=== PATIENT | female | born 1965 | race Caucasian/White ===

== ENCOUNTER 2018-07-21 02:12 | Inpatient (IN) | payer SELFPAY ==
[2018-07-21] VITALS (14 sets, daily range): BP systolic 100–133; BP diastolic 50–80
[~2018-07-21] VITALS: Ht 165.1 cm; Wt 75.7 kg
[~2018-07-21 02:12] MED LIST: ACET-575 PO; ACET325T38 PO; ALPR.25T; ALPR.5T; BSP10T PO; CEFU250T PO; CITA20TA9 PO; CITA40TA19; CLIN300C11 PO; ESCT10T; ESZO1TAB12 PO; FURO20TA4 PO; HYD; HYDR-3720 PO; HYDR-690; LACT10SO PO; LACT20SO2 PO; LEVO88TA54 PO; LORA10TA2; NAPR-915 PO; NAPR250T34 PO; NITR-65 PO; NITR100C3 PO; PANT40TA3 PO; PROP60CA8 PO; QTP100T PO; SPIR100T4 PO; Spironolactone; TRAM-21 PO; TRM50T PO; VITAMIN K; [UNRECOGNIZED DRUG - CODE]; [UNRECOGNIZED DRUG - CODE] PO; [UNRECOGNIZED DRUG - MIXTURE]; [UNRECOGNIZED DRUG - OTHER]
--- OUTSIDE RECORDS SUMMARY | 2018-07-21 02:42 | XMS REPORT | Clinical Summary ---
Author Author [facility] Organization [facility] Address Unknown Phone Unavailable Care Team Providers Care Hand Spring Repairer Helper Name Role Phone Constantino Warren MD PP Unavailable EdConstantino hollis MD Unavailable Unavailable Allergies Active Allergy Reactions Severity Noted Date Comments Sulfa Antibiotics Nausea And Vomiting Low 12/27/2012 Current Medications Prescription Sig. Disp. Refills Start End Date Status Date propranolol (INDERAL) 10 Take 10 mg by mouth Active MG tablet daily. alum & mag Take 30 mLs by mouth 2 Active hydroxide-simethicone (two) times daily. (MYLANTA) 200-200-20 MG/5ML SUSP ciprofloxacin (CIPRO) 250 Take 250 mg by mouth once Active MG tablet a week. Pt takes on Tuesday citalopram (CELEXA) 20 MG Take 20 mg by mouth Active tablet nightly. spironolactone Take 100 mg by mouth Active (ALDACTONE) 100 MG tablet daily. ferrous sulfate Take 325 mg by mouth Active (EFREM-IN-CARROLL) 325 (65 FE) daily. MG tablet simethicone (MYLICON) 80 Take 160 mg by mouth Active MG chewable tablet daily. 2 [id number] mg butalbital-acetaminophen- Take 1 tablet by mouth 30 tablet 0 11/12/19 Active caffeine (FIORICET, every 4 (four) hours as 14 ESGIC) per tab needed for Headaches. pantoprazole (PROTONIX) Take 1 tablet (40 mg 60 tablet 0 11/12/19 Active 40 MG tablet total) by mouth 2 (two) 14 times daily before meals. 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, with esophageal varicies 04/23/2013 Pancytopenia (HCC) 04/23/2013 Coagulopathy due to cirrhosis of liver 04/23/2013 Resolved Problems Problem Noted Date Resolved Date Hypokalemia 04/25/2013 11/08/2013 Acute upper GI bleeding with hematemesis of greater than 500ml of blood 05/201312/08/2013 FB (foreign body) 12/27/2012 11/08/2013 Immunizations Name Dates Previously Given Next Due Influenza IIV3 PFree 06/17/2013, 06/18/2012 Pneumococcal 07/17/2013 Polysaccharide (23-valent) Family History Medical History Relation Name Comments Stroke Brother Cancer Father Heart disease Mother Relation Name Status Comments Brother Alive Brother Alive Father Alive Mother Alive Sister Alive Social History Tobacco Use Types Packs/Day Years Used Date Former Smoker Cigarettes 11 07 Quit: 08/17/2011 Smokeless Tobacco: Never Used Alcohol Use Drinks/Week oz/Week Comments No Sex Assigned at Date Recorded Not on file Last Filed Vital Signs Vital Sign Reading Time Taken Blood Pressure 97/73 03/06/2014 5:40 PM CDT Pulse 76 03/06/2014 5:40 PM CDT Temperature 36.7 C (98 F) 03/06/2014 5:10 PM CDT Respiratory Rate 16 03/06/2014 5:40 PM CDT Oxygen Saturation 99% 03/06/2014 5:40 PM CDT Inhaled Oxygen - - Concentration Weight 77.1 kg (170 lb) 12/26/2013 10:48 AM CDT Height 165.1 cm (5' 5") 12/26/2013 10:48 AM CDT Body Mass Index 28.29 12/26/2013 10:48 AM CDT Plan of Treatment Health Maintenance Due Date Last Done Comments DTaP,Tdap,and Td Vaccines 1986 (1 - Tdap) CERVICAL CANCER SCREENING 02/02/1988 Breast Cancer 2017 Screening-Mammogram Zoster Recombinant 2017 Vaccine (RZV,Shingrix) (1 of 2 - SV 2 Dose Standard) Influenza Vaccine (#1) 2018 06/17/2013, 06/18/2012 Colon Cancer Screening 12/27/2023 12/26/2013, 12/26/2013 Results Not on filefrom Last 3 Months
--- OUTSIDE RECORDS SUMMARY | 2018-07-21 02:42 | XMS REPORT ---
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 Active Assessment Portal hypertension K76.6 Active Problem Cough R05 Active Assessment Chronic intractable headache, unspecified headache type R51 Active Assessment Paranoia (psychosis) F22 Active Problem 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 Active Problem Substance abuse F19.10 Active Problem Dysthymia F34.1 Active Problem Paranoia (psychosis) F22 Active Problem Neuropathy G62.9 Active Assessment Cough R05 Active Assessment Gastroesophageal reflux disease without esophagitis K21.9 Active Assessment Esophageal varices without bleeding, unspecified esophageal varices type I85.00 Active Assessment Alcoholic cirrhosis of liver without ascites K70.30 Active Problem Portal hypertension K76.6 Active Problem Esophageal varices without bleeding, unspecified esophageal varices type I85.00 Active Assessment Alcohol use, 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 February 06, 2016 1 tablet Lunesta [facility] [address]-53 1 MG Orally Once a day Jul 27, 2016 1 tablet immediately before bedtime Protonix [facility] [address]-62 40 mg Orally BID 1 tablet Spironolactone [facility] [address]-52 100 MG Orally Once a day 1 tablet Zantac 75 [facility] [address]-76 75 MG Orally Twice a day Jul 27, 2016 1 tablet as needed Lactulose [facility] [address]-22 10 GM/15ML Orally 3 times a day 15 ml Inderal LA [facility] [address]-13 60 mg Orally Once a day 1 capsule Celexa [facility] [address]-52 20 mg Orally Once a day 1 tablet Haldol [facility] [address]-88 5 MG/ML by oral route 2 times a day Aug 25, 2016 2.5 cc Procedures Procedure Coding System Code Date ASSAY OF AMMONIA CPT-4 38388 Aug 25, 2016 COMPREHEN METABOLIC PANEL CPT-4 38439 Aug 25, 2016 COMPLETE CBC W/AUTO DIFF WBC CPT-4 14628 Aug 25, 2016 DRUG SCREEN NON TLC DEVICES CPT-4 99524 Aug 25, 2016 Office Visit, Est Pt., Level 4 CPT-4 12300 Aug 25, 2016 URINALYSIS, AUTO, W/O SCOPE CPT-4 15800 Aug 25, 2016 Vital Signs Date/Time: Aug 25, 2016 BMI 29.28 Index Weight 176 lbs Height 65 in Results Name Result Date Reference Range Unit Abnormality Flag URINE DRUG SCREEN (IN HOUSE) ----MDMA Positive 20160825 ----TCA Positive 20160825 ----BENZO Positive 20160825 ----OPIATE Negative 20160825 ----THC Positive 20160825 ----MTD Negative 20160825 ----AMPH Positive 20160825 ----BAR Negative 20160825 ----PCP Negative 20160825 ----MAMP Positive 20160825 ----OXY Negative 20160825 ----Lot # [id number] ----Exp date 20160825 ----Control + [id number] ----COCAINE Negative 20160825 UA LONG DIP (IN HOUSE) ----DORCAS Negative 20160825 ----GLU Negative 20160825 ----SG 1.025 20160825 ----KET Negative 20160825 ----pH 6.0 20160825 ----Protein Negative 20160825 ----BLO 1+ 20160825 ----BEBETO Negative 20160825 ----Color Yellow 20160825 ----Lot # [id number] ----Odor Slight 20160825 ----Exp date 20160825 ----URO 1.0 20160825 ----NIT Negative 20160825 ----Clarity Clear 20160825 ----Lot # [id number] ----Exp date 20160825 Summary Purpose eClinicalWorks Submission
--- OUTSIDE RECORDS SUMMARY | 2018-07-21 02:43 | XMS REPORT ---
Author Author Bryson Wall Organization [facility] [place] Address [address] [id number] Care Team Providers Care Production Machine Tender Name Role Phone Bryson Wall Unavailable PROBLEMS Type Condition ICD9-CM Code [id number] Code Onset Dates Condition Status SNOMED Code Problem Esophageal varices without bleeding I85.00 Active 557759996 ALLERGIES No Information ENCOUNTERS Encounter Location Date Diagnosis [facility] [address] [phone] Apr, [facility] [address] [id number] Apr, [facility] [place] [address] [place] [id number] Apr, Nausea and vomiting, intractability of vomiting not specified, unspecified vomiting type R11.2 and History of esophageal varices Z87.19 [facility] [address] [id number] Dec, IMMUNIZATIONS No Known Immunizations SOCIAL HISTORY Never Assessed REASON FOR VISIT Follow up appt PLAN OF CARE VITAL SIGNS MEDICATIONS Unknown Medications RESULTS No Results PROCEDURES No Known procedures INSTRUCTIONS MEDICATIONS ADMINISTERED No Known Medications
--- OUTSIDE RECORDS SUMMARY | 2018-07-21 02:43 | XMS REPORT ---
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 Active 896035 Problem Chronic liver failure without hepatic coma K72.10 Active 557240304 Problem Esophageal varices without bleeding, unspecified esophageal varices type I85.00 Active 48431571 Problem Chronic hepatitis C without hepatic coma B18.2 Active 060520265 Problem Portal hypertension K76.6 Active 18490747 Problem Hypothyroidism, unspecified type E03.9 Active 90543375 Problem Hepatic encephalopathy K72.90 Active 47931369 Problem Mood disorder F39 Active 10192806 Problem Moderate episode of recurrent major depressive disorder F33.1 Active 807805261 Problem Gastroesophageal reflux disease without esophagitis K21.9 Active 933425818 Problem Chronic intractable headache, unspecified headache type R51 Active 35469662 Problem Generalized edema R60.1 Active 046254854 Problem Alcoholic cirrhosis of liver without ascites K70.30 Active 392717432 Problem Substance abuse F19.10 Active 13962204 Problem Neuropathy G62.9 Active 499735468 Problem Insomnia due to medical condition G47.01 Active 33929758 Problem Paranoia (psychosis) F22 Active 96650221 Problem Dysthymia F34.1 Active 86749976 Problem Cough R05 Active 05956579 ALLERGIES Substance Reaction Event Type Date Status Sulfamethoxazole-Trimethoprim Unknown Drug Allergy Sep, Active SOCIAL HISTORY No smoking Hx information available PLAN OF CARE Activity Details Follow Up 4 Weeks w/ Gault f/u substance Reason: VITAL SIGNS Height 65 in 2016-09-30 Weight 182 lbs 2016-09-30 Temperature 97.7 degrees Fahrenheit 2016-09-30 Heart Rate 70 bpm 2016-09-30 Respiratory Rate 22 2016-09-30 BMI 30.28 kg/m2 2016-09-30 Blood pressure systolic 100 mmHg 2016-09-30 Blood pressure diastolic 60 mmHg 2016-09-30 MEDICATIONS Medication Instructions Dosage Frequency Start Date End Date Duration Status Spironolactone 100 MG Orally Once a day 1 tablet 24h Active Promethazine HCl 25 MG Orally every 12 hrs 1 tablet as needed 12h 16 Aug, 2016 Sep, 30 day(s) Active Lactulose 10 GM/15ML Orally 5 times per day 15 ml 30 Active Lunesta 1 MG Orally Once a day 1 tablet immediately before bedtime 24h Jul, Active Protonix 40 mg Orally twice a day 1 tablet 12h Aug, 30 day(s) Active Zantac 75 75 MG Orally Twice a day 1 tablet as needed 12h Jul, Active Tylenol 325 MG Orally every 6 hrs 1 tablet as needed 6h Active Celexa 20 mg Orally Once a day 1 tablet 24h Active Inderal [place] 60 mg Orally Once a day 1 capsule 24h Active RESULTS No Results PROCEDURES Procedure Date Ordered Related Diagnosis Body Site Office Visit, Est Pt., Level 4 Sep 30, 2016 IMMUNIZATIONS No Known Immunizations
--- OUTSIDE RECORDS SUMMARY | 2018-07-21 02:43 | XMS REPORT ---
Author Author Bryson Wall Organization [facility] [place] Address [address] [phone] Care Team Providers Care Site Medical Director Name Role Phone Bryson Wall Unavailable PROBLEMS Type Condition ICD9-CM Code [id number] Code Onset Dates Condition Status SNOMED Code Problem Esophageal varices without bleeding I85.00 Active 133211970 ALLERGIES No Information ENCOUNTERS Encounter Location Date Diagnosis [facility] [address] [id number] Apr, [facility] [place] [address] [phone] Apr, Nausea and vomiting, intractability of vomiting not specified, unspecified vomiting type R11.2 and History of esophageal varices Z87.19 [facility] [address] [id number] Dec, IMMUNIZATIONS No Known Immunizations SOCIAL HISTORY Never Assessed REASON FOR VISIT PS 05/04/18 [place] PLAN OF CARE VITAL SIGNS MEDICATIONS Unknown Medications RESULTS No Results PROCEDURES No Known procedures INSTRUCTIONS MEDICATIONS ADMINISTERED No Known Medications
--- OUTSIDE RECORDS SUMMARY | 2018-07-21 02:43 | XMS REPORT ---
Author Author CARLOS BATES [facility] Address [address] [place] [address] Care Team Providers Care Hand Chain Maker Name Role Phone PAULO CARLOS Unavailable PROBLEMS Type Condition ICD9-CM Code BPJ59-HA Code Onset Dates Condition Status SNOMED Code Problem Cough R05 Active 01638175 Problem Acquired hypothyroidism E03.9 Active 503691069 Problem Neuropathy G62.9 Active 921142994 Problem Chronic hepatitis C without hepatic coma B18.2 Active 238155234 Problem Portal hypertension K76.6 Active 08890460 Problem Chronic liver failure without hepatic coma K72.10 Active 633014403 Problem Generalized edema R60.1 Active 239903320 Problem Hypothyroidism, unspecified type E03.9 Active 61413320 Problem Hepatic encephalopathy K72.90 Active 18453860 Problem Mood disorder F39 Active 81823153 Problem Moderate episode of recurrent major depressive disorder F33.1 Active 069310055 Problem Esophageal varices without bleeding, unspecified esophageal varices type I85.00 Active 85066721 Problem Chronic intractable headache, unspecified headache type R51 Active 75529534 Problem Alcoholic cirrhosis of liver without ascites K70.30 Active 839802876 Problem Gastroesophageal reflux disease without esophagitis K21.9 Active 590075843 Problem Substance abuse F19.10 Active 13845519 Problem Paranoia (psychosis) F22 Active 61532620 Problem Insomnia due to medical condition G47.01 Active 58090849 Problem Alcohol use, 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 Active 821504 Problem Dysthymia F34.1 Active 08177482 Problem 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 Active 053458 ALLERGIES No Information SOCIAL HISTORY Never Assessed PLAN OF CARE VITAL SIGNS MEDICATIONS Medication Instructions Dosage Frequency Start Date End Date Duration Status Amoxicillin 500 mg Orally 3 times a day 1 capsule 8h Dec, Dec, 10 day(s) Active RESULTS No Results PROCEDURES No Known procedures IMMUNIZATIONS No Known Immunizations MEDICAL (GENERAL) HISTORY Type Description Date Medical History cirrhosis Medical History insomnia Medical History Hx Hep C with treatment with interferon Medical History esophageal varices Surgical History Liver Shunt-- TIPS 12/2015 Hospitalization History Surgery 12/2015 Hospitalization History esoph. varices Hospitalization History Liver - high ammonia level 08/2016
--- OUTSIDE RECORDS SUMMARY | 2018-07-21 02:43 | XMS REPORT ---
Author Author IDRIS CAMACHO Organization [facility] Address [address] [place] [address] Care Team Providers Care Auto Air Conditioning Mechanic Name Role Phone IDRIS CAMACHO Unavailable PROBLEMS Type Condition ICD9-CM Code FJS23-BK Code Onset Dates Condition Status SNOMED Code Problem Cough R05 Active 11955952 Problem Acquired hypothyroidism E03.9 Active 376790608 Problem Neuropathy G62.9 Active 616980579 Problem Chronic hepatitis C without hepatic coma B18.2 Active 864363995 Problem Portal hypertension K76.6 Active 46255097 Problem Chronic liver failure without hepatic coma K72.10 Active 238352560 Problem Generalized edema R60.1 Active 272407947 Problem Hypothyroidism, unspecified type E03.9 Active 81861579 Problem Hepatic encephalopathy K72.90 Active 15062704 Problem Mood disorder F39 Active 08535448 Problem Moderate episode of recurrent major depressive disorder F33.1 Active 129753071 Problem Esophageal varices without bleeding, unspecified esophageal varices type I85.00 Active 98888383 Problem Chronic intractable headache, unspecified headache type R51 Active 50926412 Problem Alcoholic cirrhosis of liver without ascites K70.30 Active 539813868 Problem Gastroesophageal reflux disease without esophagitis K21.9 Active 985887960 Problem Substance abuse F19.10 Active 01044570 Problem Paranoia (psychosis) F22 Active 43499843 Problem Insomnia due to medical condition G47.01 Active 07821609 Problem Alcohol use, 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
--- OUTSIDE RECORDS SUMMARY | 2018-07-21 02:43 | XMS REPORT ---
Author Author CARLOS BATES [facility] Address [address] [place] [address] Care Team Providers Care Cashier Credit Name Role Phone PAULOCARLOS Unavailable PROBLEMS Type Condition ICD9-CM Code BVW22-HP Code Onset Dates Condition Status SNOMED Code Problem Cough R05 Active 94531374 Problem Acquired hypothyroidism E03.9 Active 602129331 Problem Neuropathy G62.9 Active 385315209 Problem Chronic hepatitis C without hepatic coma B18.2 Active 655672048 Problem Portal hypertension K76.6 Active 00861280 Problem Chronic liver failure without hepatic coma K72.10 Active 418602352 Problem Generalized edema R60.1 Active 611803091 Problem Hypothyroidism, unspecified type E03.9 Active 64418006 Problem Hepatic encephalopathy K72.90 Active 33184761 Problem Mood disorder F39 Active 46760967 Problem Moderate episode of recurrent major depressive disorder F33.1 Active 325717101 Problem Esophageal varices without bleeding, unspecified esophageal varices type I85.00 Active 17648846 Problem Chronic intractable headache, unspecified headache type R51 Active 20450733 Problem Alcoholic cirrhosis of liver without ascites K70.30 Active 349665764 Problem Gastroesophageal reflux disease without esophagitis K21.9 Active 545190768 Problem Substance abuse F19.10 Active 55096520 Problem Paranoia (psychosis) F22 Active 66142914 Problem Insomnia due to medical condition G47.01 Active 04544904 Problem Alcohol use, 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
--- OUTSIDE RECORDS SUMMARY | 2018-07-21 02:43 | XMS REPORT ---
Author Author IAN DODSON Organization [employer] Address Unknown Phone Unavailable Care Team Providers Care Wood Pile Driver Operator Name Role Phone IAN DODSON CP Unavailable Allergies, Adverse Reactions, Alerts Substance Reaction Event Type SulfADIAZINE stomach upset Drug Allergy Problems Problem Type Condition Code Onset Dates Condition Status Assessment Bilateral edema of lower extremity R60.0 Active Assessment Alcoholic cirrhosis of liver K70.30 Active Problem Pain in thoracic spine 724.1 Active Medications Medication Code System Code Instructions Start Date End Date Status Dosage Inderal LA [facility] [address]-45 60 MG Orally Once a day 1 capsule Tylenol [facility] [address]-19 325 MG Orally every 6 hrs 1 tablet as needed Lactulose [facility] [address]-20 10 GM/15ML Orally Once a day 15 ml Lasix [facility] [address]-45 20 mg Orally twice a day; 8 a.m.; and 2 p.m. February 06, 2016 1 tablet Protonix [facility] [address]-28 40 MG Orally BID 1 tablet Procedures Procedure Coding System Code Date Office Visit, New Pt., Level 3 CPT-4 25386 February 06, 2016 Vital Signs Date/Time: February 06, 2016 Temperature 98.0 F Weight 176.2 lbs Height 65 in BMI 29.32 Index Blood Pressure Diastolic 62 mmHg Blood Pressure Systolic 104 mmHg Cardiac Monitoring Heart Rate 76 bpm Results No Known Results Summary Purpose eClinicalWorks Submission
--- OUTSIDE RECORDS SUMMARY | 2018-07-21 02:43 | XMS REPORT ---
Author Author CARLOS BATES [facility] Address [address] [place] [address] Care Team Providers Care Surveillance Observer Name Role Phone CARLOS BATES Unavailable PROBLEMS Type Condition ICD9-CM Code GGI06-BL Code Onset Dates Condition Status SNOMED Code Problem Cough R05 Active 21087221 Problem Acquired hypothyroidism E03.9 Active 771758672 Problem Neuropathy G62.9 Active 850230919 Problem Chronic hepatitis C without hepatic coma B18.2 Active 364055659 Problem Portal hypertension K76.6 Active 25977153 Problem Chronic liver failure without hepatic coma K72.10 Active 490021608 Problem Generalized edema R60.1 Active 117979521 Problem Hypothyroidism, unspecified type E03.9 Active 60748306 Problem Hepatic encephalopathy K72.90 Active 26451269 Problem Mood disorder F39 Active 65342716 Problem Moderate episode of recurrent major depressive disorder F33.1 Active 049401275 Problem Esophageal varices without bleeding, unspecified esophageal varices type I85.00 Active 86620086 Problem Chronic intractable headache, unspecified headache type R51 Active 03133485 Problem Alcoholic cirrhosis of liver without ascites K70.30 Active 782937948 Problem Gastroesophageal reflux disease without esophagitis K21.9 Active 356712671 Problem Substance abuse F19.10 Active 51677725 Problem Paranoia (psychosis) F22 Active 53225137 Problem Insomnia due to medical condition G47.01 Active 77528147 Problem Alcohol use, 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
--- OUTSIDE RECORDS SUMMARY | 2018-07-21 02:43 | XMS REPORT ---
Author Author IDRIS CAMACHO Organization [facility] Address [address] [place] [address] Care Team Providers Care Rougher Operator Name Role Phone IDRIS CAMACHO Unavailable PROBLEMS Type Condition ICD9-CM Code [id number] Code Onset Dates Condition Status SNOMED Code Problem Cough R05 Active 27741132 Problem Acquired hypothyroidism E03.9 Active 759124956 Problem Neuropathy G62.9 Active 673523748 Problem Chronic hepatitis C without hepatic coma B18.2 Active 599414600 Problem Portal hypertension K76.6 Active 64524289 Problem Chronic liver failure without hepatic coma K72.10 Active 607541433 Problem Generalized edema R60.1 Active 261494205 Problem Hypothyroidism, unspecified type E03.9 Active 42322187 Problem Hepatic encephalopathy K72.90 Active 82788316 Problem Mood disorder F39 Active 43294433 Problem Moderate episode of recurrent major depressive disorder F33.1 Active 262427842 Problem Esophageal varices without bleeding, unspecified esophageal varices type I85.00 Active 84604315 Problem Chronic intractable headache, unspecified headache type R51 Active 12067342 Problem Alcoholic cirrhosis of liver without ascites K70.30 Active 568655700 Problem Gastroesophageal reflux disease without esophagitis K21.9 Active 719414429 Problem Substance abuse F19.10 Active 94434943 Problem Paranoia (psychosis) F22 Active 16906070 Problem Insomnia due to medical condition G47.01 Active 81759035 Problem Alcohol use, 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
--- OUTSIDE RECORDS SUMMARY | 2018-07-21 02:43 | XMS REPORT ---
Author Author MIKAELA DIETRICH Organization [facility] Address [address] [place] [address] Care Team Providers Care Red Hat Linux Administrator Name Role Phone JEROME DIETRICHNIMO Unavailable PROBLEMS Type Condition ICD9-CM Code [id number] Code Onset Dates Condition Status SNOMED Code Assessment Alcoholic cirrhosis of liver without ascites K70.30 Jun, Active 335525490 Problem Esophageal varices without bleeding, unspecified esophageal varices type I85.00 Active 74783346 Problem Portal hypertension K76.6 Active 24121725 Problem Dysthymia F34.1 Active 67463884 Problem Insomnia due to medical condition G47.01 Active 09191514 Problem Alcoholic cirrhosis of liver without ascites K70.30 Active 644109809 Problem Generalized edema R60.1 Active 867938661 Problem Chronic intractable headache, unspecified headache type R51 Active 56489873 Problem Gastroesophageal reflux disease without esophagitis K21.9 Active 122840272 ALLERGIES Substance Reaction Event Type Date Status SulfADIAZINE stomach upset Drug Allergy Jun, Active SOCIAL HISTORY No smoking Hx information available PLAN OF CARE VITAL SIGNS Height 65 in 2016-06-29 Weight 178.5 lbs 2016-06-29 Heart Rate 68 bpm 2016-06-29 Respiratory Rate 18 2016-06-29 BMI 29.70 kg/m2 2016-06-29 Blood pressure systolic 85 mmHg 2016-06-29 Blood pressure diastolic 55 mmHg 2016-06-29 MEDICATIONS Medication Instructions Dosage Frequency Start Date End Date Duration Status Celexa 20 MG Orally Once a day 1 tablet 24h Jun, Active Lactulose 10 GM/15ML Orally Once a day 15 ml 24h Active Tylenol 325 MG Orally every 6 hrs 1 tablet as needed 6h Active Protonix 40 mg Orally BID 1 tablet 12h Active Inderal LA 60 mg Orally Once a day 1 capsule 24h Active RESULTS Name Result Date Reference Range BILIRUBIN, DIRECT 2016-06-29 Bilirubin, Direct 0.34 0.00-0.40 AMMONIA 2016-06-29 Ammonia, Plasma 565 19-87 Request Problem TNP CMP 2016-06-29 Glucose, Serum 112 65-99 BUN 7 6-24 Creatinine, Serum 0.79 0.57-1.00 eGFR If NonAfricn Am 88 >59 eGFR If Africn Am 102 >59 BUN/Creatinine Ratio 9 9-23 Sodium, Serum 141 134-144 Potassium, Serum 4.7 3.5-5.2 Chloride, Serum 100 97-108 Carbon Dioxide, Total 18 18-29 Calcium, Serum 9.0 8.7-10.2 Protein, Total, Serum 7.0 6.0-8.5 Albumin, Serum 3.3 3.5-5.5 Globulin, Total 3.7 1.5-4.5 A/G Ratio 0.9 1.1-2.5 Bilirubin, Total 1.0 0.0-1.2 Alkaline Phosphatase, S 194 39-117 AST (SGOT) 59 0-40 ALT (SGPT) 32 0-32 CBC w/ MANUAL DIFF 2016-06-29 WBC TNP RBC TNP Hemoglobin TNP Hematocrit TNP MCV MCH MCHC RDW Platelets TNP Neutrophils TNP Lymphs TNP Monocytes TNP Eos Basos Immature Cells Neutrophils Absolute Lymphs (Absolute) Monocytes(Absolute) Eos (Absolute Value) Baso(Absolute) NRBC Differential Comment RBC Comment Platelet Comment PROCEDURES Procedure Date Ordered Related Diagnosis Body Site ASSAY OF AMMONIA Jun 29, 2016 COMPREHEN METABOLIC PANEL Jun 29, 2016 Office Visit, Est Pt., Level 3 Jun 29, 2016 MANUAL CELL COUNT, EACH Jun 29, 2016 VENIPUNCT, ROUTINE* Jun 29, 2016 BILIRUBIN, DIRECT Jun 29, 2016 IMMUNIZATIONS No Known Immunizations
--- OUTSIDE RECORDS SUMMARY | 2018-07-21 02:43 | XMS REPORT ---
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 Active 896297 Problem Acquired hypothyroidism E03.9 Active 553165562 Problem 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 Active 793911 Problem Chronic liver failure without hepatic coma K72.10 Active 455657379 Problem Esophageal varices without bleeding, unspecified esophageal varices type I85.00 Active 76026144 Problem Chronic hepatitis C without hepatic coma B18.2 Active 979092507 Problem Portal hypertension K76.6 Active 89716429 Problem Hypothyroidism, unspecified type E03.9 Active 39539327 Problem Hepatic encephalopathy K72.90 Active 04568289 Problem Mood disorder F39 Active 51244885 Problem Moderate episode of recurrent major depressive disorder F33.1 Active 505986297 Problem Gastroesophageal reflux disease without esophagitis K21.9 Active 074939930 Problem Chronic intractable headache, unspecified headache type R51 Active 80805870 Problem Generalized edema R60.1 Active 206182085 Problem Alcoholic cirrhosis of liver without ascites K70.30 Active 956922551 Problem Substance abuse F19.10 Active 81814785 Problem Neuropathy G62.9 Active 201965295 Problem Insomnia due to medical condition G47.01 Active 00455894 Problem Paranoia (psychosis) F22 Active 23969551 Problem Dysthymia F34.1 Active 39467775 Problem Cough R05 Active 76047449 ALLERGIES Substance Reaction Event Type Date Status Sulfamethoxazole-Trimethoprim Unknown Drug Allergy Sep, Active SOCIAL HISTORY No smoking Hx information available PLAN OF CARE Activity Details Follow Up 4 Weeks with Fish edema f.u Reason: VITAL SIGNS Height 65 in 2016-10-07 Weight 190.8 lbs 2016-10-07 Temperature 97.6 degrees Fahrenheit 2016-10-07 Heart Rate 70 bpm 2016-10-07 Respiratory Rate 20 2016-10-07 BMI 31.75 kg/m2 2016-10-07 Blood pressure systolic 115 mmHg 2016-10-07 Blood pressure diastolic 72 mmHg 2016-10-07 MEDICATIONS Medication Instructions Dosage Frequency Start Date End Date Duration Status Inderal LA 60 mg Orally Once a day 1 capsule 24h Active Lunesta 1 MG Orally Once a day 1 tablet immediately before bedtime 24h Jul, Active Lactulose 10 GM/15ML Orally 5 times per day 15 ml 30 Active Spironolactone 100 MG Orally Once a day 1 tablet 24h Active Zofran 8 MG Orally bid 1 tablet 12h Sep, 30 day(s) Active Celexa 20 mg Orally Once a day 1 tablet 24h Active Protonix 40 mg Orally twice a day 1 tablet 12h Aug, 30 day(s) Active Promethazine HCl 12.5 MG Orally every 6 hrs 1 tablet as needed 6h Sep, Oct, 30 day(s) Active Zantac 75 75 MG Orally Twice a day 1 tablet as needed 12h Jul, Active Tylenol 325 MG Orally every 6 hrs 1 tablet as needed 6h Active RESULTS No Results PROCEDURES Procedure Date Ordered Related Diagnosis Body Site Office Visit, Est Pt., Level 4 Oct 07, 2016 IMMUNIZATIONS No Known Immunizations
--- OUTSIDE RECORDS SUMMARY | 2018-07-21 02:44 | XMS REPORT ---
Author Author CARLOS BATES Organization [facility] [place] Address [address] [place] [address] Care Team Providers Care Treasury Analyst Name Role Phone CARLOS BATES Unavailable PROBLEMS Type Condition ICD9-CM Code MSE50-TW Code Onset Dates Condition Status SNOMED Code Problem Cough R05 Active 21752895 Problem Acquired hypothyroidism E03.9 Active 331045301 Problem Neuropathy G62.9 Active 058140650 Problem Chronic hepatitis C without hepatic coma B18.2 Active 101453183 Problem Portal hypertension K76.6 Active 91606042 Problem Chronic liver failure without hepatic coma K72.10 Active 409212372 Problem Generalized edema R60.1 Active 606581546 Problem Hypothyroidism, unspecified type E03.9 Active 00384184 Problem Hepatic encephalopathy K72.90 Active 99413670 Problem Mood disorder F39 Active 08942938 Problem Moderate episode of recurrent major depressive disorder F33.1 Active 551510113 Problem Esophageal varices without bleeding, unspecified esophageal varices type I85.00 Active 95471753 Problem Chronic intractable headache, unspecified headache type R51 Active 26671234 Problem Alcoholic cirrhosis of liver without ascites K70.30 Active 511169689 Problem Gastroesophageal reflux disease without esophagitis K21.9 Active 747122184 Problem Substance abuse F19.10 Active 52780793 Problem Paranoia (psychosis) F22 Active 66658038 Problem Insomnia due to medical condition G47.01 Active 06323123 Problem Alcohol use, 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 Active 358064 Problem Dysthymia F34.1 Active 68407631 Problem 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 Active 262683 ALLERGIES No Information ENCOUNTERS Encounter Location Date Diagnosis [address] [place] [id number] May, Acquired hypothyroidism E03.9 [address] [place], [place] [id number] May, Hepatic encephalopathy K72.90 [facility] [place] [id number] [address] Apr, End stage liver disease K72.90 [address] [place] [address] Mar, [facility] [place] [id number] [place] [address] Mar, Chronic liver failure without hepatic coma K72.10 ; Laryngitis J04.0 and Gastroesophageal reflux disease without esophagitis K21.9 [facility] [place] [address] [place] [address] Mar, Chronic liver failure without hepatic coma K72.10 ; Chronic hepatitis C without hepatic coma B18.2 and Laryngitis J04.0 [facility] [address] [id number] Mar, Mood disorder F39 and Chronic seasonal allergic rhinitis due to other allergen J30.2 [id number] [place] [address] February, End stage liver disease K72.90 and Gastric varices I86.4 [address] [place] [address] Jan, End stage liver disease K72.90 [address] [place] [address] Jan, Hepatic encephalopathy K72.90 ; Nausea and vomiting, intractability of vomiting not specified, unspecified vomiting type R11.2 ; Moderate episode of recurrent major depressive disorder F33.1 and Substance abuse F19.10 [address] [address] Dec, [id number] [place] [address] Dec, [address] [id number] Nov, [address] [place] [address] Nov, Hypothyroidism, unspecified type E03.9 [id number] [place] [address] Oct, [address] [address] Oct, Alcoholic cirrhosis of liver without ascites K70.30 and Substance abuse F19.10 [address] [address] Sep, Non-intractable vomiting with nausea, unspecified vomiting type R11.2 and Bilateral leg edema R60.[address] [address] Sep, End stage liver disease K72.90 ; Hepatic encephalopathy K72.90 ; Substance abuse F19.10 and Acquired hypothyroidism E03.[address] [address] Aug, End stage liver disease K72.90 ; Hepatic encephalopathy K72.90 ; Nausea and vomiting, intractability of vomiting not specified, unspecified vomiting type R11.2 and Gastric varices I86.4 [id number] [place] [address] Aug, [id number] [place] [address] Aug, 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 ; Alcohol use, 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 ; Gastroesophageal reflux disease without esophagitis K21.9 ; Cough R05 ; Alcoholic cirrhosis of liver without ascites K70.30 ; Esophageal varices without bleeding, unspecified esophageal varices type I85.00 ; Portal hypertension K76.6 ; Chronic intractable headache, unspecified headache type R51 and Paranoia (psychosis) F22 [id number] [place] [address] Jul, [place] [id number] Jul, Gastroesophageal reflux disease without esophagitis K21.9 ; Alcoholic cirrhosis of liver without ascites K70.30 ; Generalized edema R60.1 ; Esophageal varices without bleeding, unspecified esophageal varices type I85.00 ; Portal hypertension K76.6 ; Dysthymia F34.1 and Insomnia due to medical condition G47.01 [id number] [place] [address] Jul, Alcoholic cirrhosis of liver without ascites K70.30 ; Dysthymia F34.1 ; Esophageal varices without bleeding, unspecified esophageal varices type I85.00 and Insomnia due to medical condition G47.01 [id number] [place] [address] Jun, Alcoholic cirrhosis of liver without ascites K70.30 ; Dysthymia F34.1 ; Esophageal varices without bleeding, unspecified esophageal varices type I85.00 and Insomnia due to medical condition G47.01 [id number] [place] [address] May, Alcoholic cirrhosis of liver without ascites K70.30 ; Esophageal varices without bleeding, unspecified esophageal varices type I85.00 ; Portal hypertension K76.6 ; Generalized edema R60.1 ; Chronic intractable headache, unspecified headache type R51 ; Phobic anxiety disorder, unspecified F40.9 and Insomnia due to other mental disorder F51.05 [id number] [place] [address] February, Gastroesophageal reflux disease without esophagitis K21.9 ; Alcoholic cirrhosis of liver without ascites K70.30 ; Generalized edema R60.1 ; Esophageal varices without bleeding, unspecified esophageal varices type I85.00 and Portal hypertension K76.6 [address] [place] [address] Jan, Bilateral edema of lower extremity R60.0 [facility] [address] [place] [address] Jan, Bilateral edema of lower extremity R60.0 and Alcoholic cirrhosis of liver K70.30 [facility] [place] [address] [address] 15 Oct, 2012 [facility] [place] [address] [address] Jan, [facility] [place] [address] [address] May, [facility] [place] [address] [address] 15 Mar, 2010 [facility] [place] [address] [place] [address] Jan, [facility] [place] [id number] [address] Dec, [facility] [place] [address] [place] [address] 16 Nov, 2009 [facility] [place] [address] [address] Aug, [facility] [place] [address] [address] Jun, [facility] [place] [address] [address] Apr, [facility] [place] [address] [address] Mar, [facility] [place] [address] [address] Sep, [facility] [place] [address] [address] Sep, [facility] [place] [address] [address] Jul, IMMUNIZATIONS No Known Immunizations SOCIAL HISTORY Never Assessed REASON FOR VISIT Custodial PLAN OF CARE VITAL SIGNS Height 65 in 2017-03-22 Weight 177 lbs 2017-03-22 Heart Rate 76 bpm 2017-03-22 Respiratory Rate 16 2017-03-22 BMI 29.45 kg/m2 2017-03-22 Blood pressure systolic 110 mmHg 2017-03-22 Blood pressure diastolic 64 mmHg 2017-03-22 MEDICATIONS Medication Instructions Dosage Frequency Start Date End Date Duration Status Wellbutrin SR 150 MG Orally Twice a day 1 tablet 12h Mar, 30 day(s) Active Loratadine 10 MG Orally Once a day 1 tablet 24h Mar, Apr, 30 day(s) Active RESULTS No Results PROCEDURES No Known procedures INSTRUCTIONS MEDICATIONS ADMINISTERED No Known Medications MEDICAL (GENERAL) HISTORY Type Description Date Medical History cirrhosis Medical History insomnia Medical History Hx Hep C with treatment with interferon Medical History esophageal varices Surgical History Liver Shunt-- TIPS 12/2015 Hospitalization History Surgery 12/2015 Hospitalization History esoph. varices Hospitalization History Liver - high ammonia level 08/2016
--- OUTSIDE RECORDS SUMMARY | 2018-07-21 02:44 | XMS REPORT ---
Author Author LESLIE MARQUEZ [facility] [place] e[employer] Address Unknown Phone Unavailable Care Team Providers Care Financial Sales Advisor Name Role Phone LESLIE MARQUEZ CP Unavailable Allergies, Adverse Reactions, Alerts Substance Reaction Event Type SulfADIAZINE stomach upset Drug Allergy Problems Problem Type Condition Code Onset Dates Condition Status Assessment Gastroesophageal reflux disease without esophagitis K21.9 Active Problem Esophageal varices without bleeding, unspecified esophageal varices type I85.00 Active Problem Portal hypertension K76.6 Active Problem Dysthymia F34.1 Active Problem Insomnia due to medical condition G47.01 Active Problem Substance abuse F19.10 Active Problem Alcoholic cirrhosis of liver without ascites K70.30 Active Problem Generalized edema R60.1 Active Problem Chronic intractable headache, unspecified headache type R51 Active Problem Gastroesophageal reflux disease without esophagitis K21.9 Active Assessment Portal hypertension K76.6 Active Assessment Esophageal varices without bleeding, unspecified esophageal varices type I85.00 Active Assessment Insomnia due to medical condition G47.01 Active Assessment Generalized edema R60.1 Active Assessment Dysthymia F34.1 Active Assessment Alcoholic cirrhosis of liver without ascites K70.30 Active Medications Medication Code System Code Instructions Start Date End Date Status Dosage Rexulti [facility] [address]-91 0.5 MG Orally Once a day Jul 27, 2016 1 tablet Lactulose [facility] [address]-73 10 GM/15ML Orally Once a day 15 ml Lunesta [facility] [address]-96 1 MG Orally Once a day 1 tablet immediately before bedtime Protonix [facility] [address]-22 40 mg Orally BID 1 tablet Celexa [facility] [address]-48 20 mg Orally Once a day 1 tablet Lunesta [facility] [address]-67 1 MG Orally Once a day Jul 27, 2016 1 tablet immediately before bedtime Zantac [address] [facility] [address]-45 75 MG Orally Twice a day Jul 27, 2016 1 tablet as needed Rexulti [facility] [address]-71 0.5 MG Orally Once a day 1 tablet Inderal LA [facility] [address]-99 60 mg Orally Once a day 1 capsule Tylenol [facility] [address]-58 325 MG Orally every 6 hrs 1 tablet as needed Procedures Procedure Coding System Code Date Office Visit, Est Pt., Level 4 CPT-4 07773 Jul 27, 2016 Vital Signs Date/Time: Jul 27, 2016 Cardiac Monitoring Heart Rate 68 bpm Weight 170.0 lbs Height 65 in BMI 28.29 Index Blood Pressure Diastolic 68 mmHg Blood Pressure Systolic 110 mmHg Results No Known Results Summary Purpose [employer] Submission
--- OUTSIDE RECORDS SUMMARY | 2018-07-21 02:44 | XMS REPORT ---
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
--- OUTSIDE RECORDS SUMMARY | 2018-07-21 02:44 | XMS REPORT ---
Author Author IDRIS CAMACHO Organization [facility] Address [address] [place] [address] Care Team Providers Care Latrine Cleaner Name Role Phone IDRIS CAMACHO Unavailable PROBLEMS Type Condition ICD9-CM Code [id number] Code Onset Dates Condition Status SNOMED Code Problem Cough R05 Active 01275938 Problem Acquired hypothyroidism E03.9 Active 317296359 Problem Neuropathy G62.9 Active 356535816 Problem Chronic hepatitis C without hepatic coma B18.2 Active 268184208 Problem Portal hypertension K76.6 Active 00692344 Problem Chronic liver failure without hepatic coma K72.10 Active 548051239 Problem Generalized edema R60.1 Active 467055136 Problem Hypothyroidism, unspecified type E03.9 Active 19696502 Problem Hepatic encephalopathy K72.90 Active 82483983 Problem Mood disorder F39 Active 04499584 Problem Moderate episode of recurrent major depressive disorder F33.1 Active 119402553 Problem Esophageal varices without bleeding, unspecified esophageal varices type I85.00 Active 82264260 Problem Chronic intractable headache, unspecified headache type R51 Active 49011019 Problem Alcoholic cirrhosis of liver without ascites K70.30 Active 557118726 Problem Gastroesophageal reflux disease without esophagitis K21.9 Active 988995756 Problem Substance abuse F19.10 Active 83268509 Problem Paranoia (psychosis) F22 Active 11089819 Problem Insomnia due to medical condition G47.01 Active 03671170 Problem Alcohol use, 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 Active 033365 Problem Dysthymia F34.1 Active 92667503 Problem 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 Active 324045 ALLERGIES Substance Reaction Event Type Date Status Sulfamethoxazole-Trimethoprim Unknown Drug Allergy Oct, Active SOCIAL HISTORY Never Assessed PLAN OF CARE Activity Details Follow Up 2 Months with Fish Reason: VITAL SIGNS Height 65 in 2016-10-28 Weight 189.0 lbs 2016-10-28 Temperature 98.0 degrees Fahrenheit 2016-10-28 Heart Rate 76 bpm 2016-10-28 Respiratory Rate 18 2016-10-28 BMI 31.45 kg/m2 2016-10-28 Blood pressure systolic 118 mmHg 2016-10-28 Blood pressure diastolic 70 mmHg 2016-10-28 MEDICATIONS Medication Instructions Dosage Frequency Start Date End Date Duration Status Tylenol 325 MG Orally every 6 hrs 1 tablet as needed 6h Active Lunesta 1 MG Orally Once a day 1 tablet immediately before bedtime 24h Jul, Active Inderal LA 60 mg Orally Once a day 1 capsule 24h Active Spironolactone 100 MG Orally Once a day 1 tablet 24h Active Protonix 40 mg Orally twice a day 1 tablet 12h Aug, 30 day(s) Active Zantac 75 75 MG Orally Twice a day 1 tablet as needed 12h Jul, Active Lasix 20 mg Orally twice a day; 8 a.m.; and 2 p.m. 1 tablet Jan, 30 days Active Lactulose 10 GM/15ML Orally 5 times per day 15 ml 30 Active Promethazine HCl 12.5 MG Orally every 6 hrs 1 tablet as needed 6h Sep, Oct, 30 day(s) Active Zofran 8 MG Orally bid 1 tablet 12h Sep, 30 day(s) Active RESULTS No Results PROCEDURES [...]
--- OUTSIDE RECORDS SUMMARY | 2018-07-21 02:44 | XMS REPORT ---
Author Author LESLIE MARQUEZ Organization [employer] Address Unknown Phone Unavailable Care Team Providers Care Investigations Chief Name Role Phone LESLIE MARQUEZ Unavailable Allergies No Known Allergies Problems Problem Type Condition Code Onset Dates Condition Status Problem Esophageal varices without bleeding, unspecified esophageal [...] Gastroesophageal reflux disease without esophagitis K21.9 Active Medications No Known Medications Results No Known Results Summary Purpose [employer] Submission
--- OUTSIDE RECORDS SUMMARY | 2018-07-21 02:44 | XMS REPORT ---
Author Author MIKAELA DIETRICH [employer] Address Unknown Phone Unavailable Care Team Providers Care Poultry Hanger Name Role Phone MIKAELA DIETRICH CP Unavailable Allergies, Adverse Reactions, Alerts Substance Reaction Event Type SulfADIAZINE stomach upset Drug Allergy Problems Problem Type Condition Code Onset Dates Condition Status Assessment Alcoholic cirrhosis of liver without ascites K70.30 Active Problem Esophageal varices without bleeding, unspecified [...] reflux disease without esophagitis K21.9 Active Assessment Insomnia due to medical condition G47.01 Active Assessment Esophageal varices without bleeding, unspecified esophageal varices type I85.00 Active Assessment Dysthymia F34.1 Active Medications Medication Code System Code Instructions Start Date End Date Status Dosage Rexulti [facility] [address]-09 0.5 MG Orally Once a day Jul 27, 2016 1 tablet Protonix [facility] [address]-43 40 mg Orally BID 1 tablet Inderal LA [facility] [address]-15 60 mg Orally Once a day 1 capsule Lunesta [facility] [address]-32 1 MG Orally Once a day Jul 27, 2016 1 tablet immediately before bedtime Celexa [facility] [address]-66 20 mg Orally Once a day 1 tablet Lactulose [facility] [address]-75 10 GM/15ML Orally Once a day 15 ml Tylenol [facility] [address]-05 325 MG Orally every 6 hrs 1 tablet as needed Procedures Procedure Coding System Code Date Office Visit, Est Pt., Level 2 CPT-4 55998 Jul 27, 2016 Vital Signs Date/Time: Jul 27, 2016 Cardiac Monitoring Heart Rate 68 bpm Weight 170.0 lbs Height 65 in BMI 28.29 Index Blood Pressure Diastolic 73 mmHg Blood Pressure Systolic 110 mmHg Results No Known Results Summary Purpose [employer] Submission
--- OUTSIDE RECORDS SUMMARY | 2018-07-21 02:44 | XMS REPORT ---
Author Author IAN DODSON Organization [employer] Address Unknown Phone Unavailable Care Team Providers Care Content Production Specialist Name Role Phone IAN DODSON Unavailable Allergies No Known Allergies Problems Problem Type Condition Code Onset Dates Condition Status Assessment Bilateral edema of lower extremity R60.0 Active Problem Pain in thoracic spine 724.1 Active Medications No Known Medications Procedures Procedure Coding System Code Date LIPID PANEL CPT-4 20961 February 12, 2016 COMPREHEN METABOLIC PANEL CPT-4 48420 February 12, 2016 ASSAY OF AMMONIA CPT-4 31133 February 12, 2016 VENIPUNCT, ROUTINE* CPT-4 80724 February 12, 2016 MANUAL CELL COUNT, EACH CPT-4 60394 February 12, 2016 Results No Known Results Summary Purpose [employer] Submission
--- OUTSIDE RECORDS SUMMARY | 2018-07-21 02:44 | XMS REPORT ---
Author Author IDRIS CAMACHO Organization [facility] Address [address] [place] [address] Care Team Providers Care Demolition Engineer Name Role Phone IDRIS CAMACHO Unavailable PROBLEMS Type Condition ICD9-CM Code QGM99-IM Code Onset Dates Condition Status SNOMED Code Problem Cough R05 Active 17223841 Problem Acquired hypothyroidism E03.9 Active 174353483 Problem Neuropathy G62.9 Active 894937205 Problem Chronic hepatitis C without hepatic coma B18.2 Active 877045726 Problem Portal hypertension K76.6 Active 02820810 Problem Chronic liver failure without hepatic coma K72.10 Active 514868721 Problem Generalized edema R60.1 Active 690415115 Problem Hypothyroidism, unspecified type E03.9 Active 66408774 Problem Hepatic encephalopathy K72.90 Active 95476948 Problem Mood disorder F39 Active 48649499 Problem Moderate episode of recurrent major depressive disorder F33.1 Active 727858957 Problem Esophageal varices without bleeding, unspecified esophageal varices type I85.00 Active 71909545 Problem Chronic intractable headache, unspecified headache type R51 Active 64731939 Problem Alcoholic cirrhosis of liver without ascites K70.30 Active 038022350 Problem Gastroesophageal reflux disease without esophagitis K21.9 Active 004260436 Problem Substance abuse F19.10 Active 14205549 Problem Paranoia (psychosis) F22 Active 02289845 Problem Insomnia due to medical condition G47.01 Active 74470459 Problem Alcohol use, 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
[2018-07-21] MEDS ORDERED: fentaNYL INJECTION 100 MCG/2 ML AMP IVP ONE ×3 (02:45→04:15)
--- OUTSIDE RECORDS SUMMARY | 2018-07-21 02:45 | XMS REPORT ---
Author Author CARLOS BATES Organization [facility] Address [address] [place] [address] Care Team Providers Care Software Systems Engineer Name Role Phone CARLOS BATES Unavailable PROBLEMS Type Condition ICD9-CM Code MRQ63-OP Code Onset Dates Condition Status SNOMED Code Problem Cough R05 Active 71202269 Problem Acquired hypothyroidism E03.9 Active 072641686 Problem Neuropathy G62.9 Active 854678913 Problem Chronic hepatitis C without hepatic coma B18.2 Active 362990641 Problem Portal hypertension K76.6 Active 89481128 Problem Chronic liver failure without hepatic coma K72.10 Active 990808598 Problem Generalized edema R60.1 Active 174434051 Problem Hypothyroidism, unspecified type E03.9 Active 02860022 Problem Hepatic encephalopathy K72.90 Active 11448221 Problem Mood disorder F39 Active 36231241 Problem Moderate episode of recurrent major depressive disorder F33.1 Active 839517805 Problem Esophageal varices without bleeding, unspecified esophageal varices type I85.00 Active 88137135 Problem Chronic intractable headache, unspecified headache type R51 Active 15683187 Problem Alcoholic cirrhosis of liver without ascites K70.30 Active 108994490 Problem Gastroesophageal reflux disease without esophagitis K21.9 Active 182366021 Problem Substance abuse F19.10 Active 31028079 Problem Paranoia (psychosis) F22 Active 89484682 Problem Insomnia due to medical condition G47.01 Active 65022519 Problem Alcohol use, 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 Active 712913 Problem Dysthymia F34.1 Active 66611907 Problem 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 Active 237817 ALLERGIES Substance Reaction Event Type Date Status Sulfamethoxazole-Trimethoprim Unknown Drug Allergy May, Active ENCOUNTERS Encounter Location Date Diagnosis [facility] [address] [place], [place] [id number] May, Acquired hypothyroidism E03.9 [facility] [address] [id number] May, Hepatic encephalopathy K72.90 [facility] [id number] [address] Apr, End stage liver disease K72.90 [facility] [address] [address] Mar, [facility] [address] [address] Mar, Chronic liver failure without hepatic coma K72.10 ; Laryngitis J04.0 and Gastroesophageal reflux disease without esophagitis K21.9 [facility] [address] [place] [address] Mar, Chronic liver failure without hepatic coma K72.10 ; Chronic hepatitis C without hepatic coma B18.2 and Laryngitis J04.0 [facility] [address], [place] [id number] Mar, Mood disorder F39 and Chronic seasonal allergic rhinitis due to other allergen J30.2 [facility] [facility] [address] [place] [address] February, End stage liver disease K72.90 and Gastric varices I86.4 [facility] [address] [place] [address] Jan, End stage liver disease K72.90 [facility] [address] [address] Jan, Hepatic encephalopathy K72.90 ; Nausea and vomiting, intractability of vomiting not specified, unspecified vomiting type R11.2 ; Moderate episode of recurrent major depressive disorder F33.1 and Substance abuse F19.10 [facility] [address] [address] Dec, [facility] [address] [address] Dec, [facility] [id number] [id number] Nov, [facility] [id number] [place] [address] Nov, 2016 Hypothyroidism, unspecified type E03.9 [address] [place] [address] [address] Oct, [place] [address] [address] Oct, Alcoholic cirrhosis of liver without ascites K70.30 and Substance abuse F19.10 [place] [address] [address] Sep, Non-intractable vomiting with nausea, unspecified vomiting type R11.2 and Bilateral leg edema R60.[address] [address] Sep, End stage liver disease K72.90 ; Hepatic encephalopathy K72.90 ; Substance abuse F19.10 and Acquired hypothyroidism E03.9 [place] [address] [address] Aug, End stage liver disease K72.90 ; Hepatic encephalopathy K72.90 ; Nausea and vomiting, intractability of vomiting not specified, unspecified vomiting type R11.2 and Gastric varices I86.4 [address] [place] [id number] [place] [address] Aug, [address] [id number] [place] [address] 09 Aug, 2016 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 ; Alcohol use, 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 ; Gastroesophageal reflux disease without esophagitis K21.9 ; Cough R05 ; Alcoholic cirrhosis of liver without ascites K70.30 ; Esophageal varices without bleeding, unspecified esophageal varices type I85.00 ; Portal hypertension K76.6 ; Chronic intractable headache, unspecified headache type R51 and Paranoia (psychosis) F22 [id number] [place] [address] Jul, [facility] [place] [address] [place] [address] Jul, Gastroesophageal reflux disease without esophagitis K21.9 ; Alcoholic cirrhosis of liver without ascites K70.30 ; Generalized edema R60.1 ; Esophageal varices without bleeding, unspecified esophageal varices type I85.00 ; Portal hypertension K76.6 ; Dysthymia F34.1 and Insomnia due to medical condition G47.01 [facility] [id number] [place] [address] Jul, Alcoholic cirrhosis of liver without ascites K70.30 ; Dysthymia F34.1 ; Esophageal varices without bleeding, unspecified esophageal varices type I85.00 and Insomnia due to medical condition G47.01 [facility] [id number] [place] [address] Jun, Alcoholic cirrhosis of liver without ascites K70.30 ; Dysthymia F34.1 ; Esophageal varices without bleeding, unspecified esophageal varices type I85.00 and Insomnia due to medical condition G47.01 [facility] [id number] [place] [address] May, Alcoholic cirrhosis of liver without ascites K70.30 ; Esophageal varices without bleeding, unspecified esophageal varices type I85.00 ; Portal hypertension K76.6 ; Generalized edema R60.1 ; Chronic intractable headache, unspecified headache type R51 ; Phobic anxiety disorder, unspecified F40.9 and Insomnia due to other mental disorder F51.05 [facility] [id number] [place] [address] February, Gastroesophageal reflux disease without esophagitis K21.9 ; Alcoholic cirrhosis of liver without ascites K70.30 ; Generalized edema R60.1 ; Esophageal varices without bleeding, unspecified esophageal varices type I85.00 and Portal hypertension K76.6 [facility] [address] [place] [address] Jan, Bilateral edema of lower extremity R60.0 [facility] [id number] [address] Jan, 2016 Bilateral edema of lower extremity R60.0 and Alcoholic cirrhosis of liver K70.30 [facility] [address] [address] 15 Oct, 2012 [facility] [address] [address] Jan, [facility] [id number] [address] May, [facility] [address] [address] 15 Mar, 2010 [facility] [id number] [address] 14 Jan, 2010 [facility] [address] [address] Dec, [facility] [address] [address] 16 Nov, 2009 [facility] [address] [address] Aug, [facility] [address] [address] 11 Jun, 2009 [facility] [address] [address] 16 Apr, 2009 [facility] [address] [address] Mar, [facility] [address] [address] Sep, [facility] [address] [address] Sep, [facility] [id number] [address] Jul, IMMUNIZATIONS No Known Immunizations SOCIAL HISTORY Never Assessed REASON FOR VISIT LONGTERM PLAN OF CARE VITAL SIGNS Height 65 in 2017-06-14 Weight 185 lbs 2017-06-14 Heart Rate 60 bpm 2017-06-14 Respiratory Rate 16 2017-06-14 BMI 30.78 kg/m2 2017-06-14 Blood pressure systolic 120 mmHg 2017-06-14 Blood pressure diastolic 84 mmHg 2017-06-14 MEDICATIONS Medication Instructions Dosage Frequency Start Date End Date Duration Status Levothyroxine Sodium 88 MCG Orally Once a day 1 tablet on an empty stomach in the morning 24h 30 Active RESULTS No Results PROCEDURES No Known [...]
--- OUTSIDE RECORDS SUMMARY | 2018-07-21 02:46 | XMS REPORT | Continuity of Care Document ---
Author Author [facility] Address Unknown Phone Unavailable Allergies Active Description Code Type Severity Reaction Onset Reported/Identified Relationship to Patient Clinical Status Yes Sulfa (Sulfonamide Antibiotics) [id number] Drug Allergy Unknown N/A 2005 Yes sulfa drug Drug Allergy 12/17/2008 Yes SULFA ANTIBIOTICS 33 Drug Class Low N&V 12/27/2012 Yes SULFA ANTIBIOTICS 34 Drug Class Low NTV 12/27/2012 Medications There is no data. Problems Date Dx Coded Attending Type Code Diagnosis Diagnosed By 08/07/2008 CARLOS BATES APRN 465.9 Upper Respiratory Infection 08/07/2008 CARLOS BATES APRN 599.0 Urinary Tract Infection 09/28/2008 CARLOS BATES APRN 070.54 HEPATITIS, C VIRUS - CHRONIC 10/15/2008 CARLOS BATES APRN 786.50 Chest Pain 10/31/2008 CARLOS BATES APRN 415.12 Septic Pulmonary Embolism 11/14/2008 CARLOS BATES APRN 415.19 OTHER PULMONARY EMBOLISM AND INFARCTION 12/17/2008 CARLOS BATES APRN 719.47 Ankle Joint Pain 12/17/2008 CARLOS BATES APRN 724.2 Lower Back Pain 12/17/2008 CARLOS BATES APRN 786.52 Anterior Wall Chest Pain With Respiration 02/14/2009 CARLOS BATES APRN 466.0 Acute Bronchitis 02/18/2009 CARLOS BATES APRN 724.1 Midback Pain 02/18/2009 CARLOS BATES APRN 786.3 coughing up sputum blood-streaked 02/19/2009 CARLOS BATES APRN 491.21 Bronchitis Aecb 03/12/2009 CARLOS BATES APRN 724.3 Sciatica 05/01/2009 CARLOS BATES APRN 626.2 Excessive Or Frequent Menstruation 06/19/2009 CARLOS BATES APRN 070.44 HEPATITIS, C VIRUS - CHRONIC WITH HEPATIC COMA 06/27/2009 CARLOS BATES APRN V58.69 taking high-risk medication 12/02/2009 CARLOS BATES APRN 296.9 MOOD DIS NOS 12/02/2009 CARLOS BATES APRN 300.00 ANXIETY UNSPEC 12/02/2009 CARLOS BATES APRN 780.79 MALAISE AND FATIGUE 12/23/2009 CARLOS BATES APRN 389.9 Hearing Loss 12/23/2009 CARLOS BATES APRN 461.0 Sinusitis Acute Maxillary 12/30/2009 CARLOS BATES APRN V68.1 ISSUE OF REPEAT PRESCRIPTIONS 01/28/2010 CARLOS BATES APRN 307.40 INSOMNIA 03/31/2010 CARLOS BATES APRN 525.9 Unspecified Disorder Of The Teeth And Supporting Structures 04/06/2010 Ot 346.90 MIGRAINE UNSPECIFIED W/O INTRACT MGRN W/ 04/06/2010 Ot 525.10 UNSPEC ACQUIRED ABSENCE OF TEETH 04/06/2010 Ot 525.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, UNSPECFIED 04/06/2010 Ot 784.0 HEADACHE 04/09/2010 CARLOS BATES APRN 300.02 AN GEN ANXIETY 04/09/2010 CARLOS BATES APRN 627.3 Postmenopausal Atrophic Vaginitis 04/14/2010 Ot 788.20 RETENTION OF URINE NOS 04/16/2010 CARLOS BATES APRN 686.9 Unspecified Local Infection Of Skin And Subcutaneous Tissue 07/17/2010 Ot 784.0 HEADACHE 06/04/2011 CARLOS BATES APRN 296.90 MOOD DISORDER 06/18/2011 Ot 070.70 UNSPECIFIED VIRAL HEPATITIS C WITHOUT HE 06/18/2011 Ot V62.84 SUICIDAL IDEATION 02/09/2012 CARLOS BATES APRN 724.1 Midback Pain 12/18/2015 BECK SONI B18.2 Chronic viral hepatitis C 12/18/2015 BECK SONI 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 12/18/2015 BECK SONI D69.6 Thrombocytopenia, unspecified 12/18/2015 BECK SONI I85.10 Secondary esophageal varices without bleeding 12/18/2015 BECK SONI K74.60 Unspecified cirrhosis of liver 12/18/2015 BECK SONI K92.0 Hematemesis 12/18/2015 BECK SONI R11.0 Nausea 12/18/2015 BECK SONI Z86.19 Personal history of other infectious and parasitic diseases 02/10/2016 CORTES CARLOS DONNELLY Ot E72.20 DISORDER OF UREA CYCLE METABOLISM, UNSPE 02/10/2016 CORTES CARLOS DONNELLY Ot F17.210 NICOTINE DEPENDENCE, CIGARETTES, UNCOMPL 02/10/2016 CORTES CARLOS DONNELLY Ot N39.0 URINARY TRACT INFECTION, SITE NOT SPECIF 02/11/2016 CORTESCARLOS LANCE DO Ot E72.20 DISORDER OF UREA CYCLE METABOLISM, UNSPE 02/11/2016 CORTES DOCARLOS Ot F17.210 NICOTINE DEPENDENCE, CIGARETTES, UNCOMPL 02/11/2016 CORTES DO, CARLOS Casiano Ot N39.0 URINARY TRACT INFECTION, SITE NOT SPECIF 03/05/2016 CORTES CARLOS DONNELLY Ot E72.20 DISORDER OF UREA CYCLE METABOLISM, UNSPE 03/05/2016 CORTES DONNELLYCARLOS Ot F17.210 NICOTINE DEPENDENCE, CIGARETTES, UNCOMPL 03/05/2016 CORTES DONNELLYCARLOS Ot N39.0 URINARY TRACT INFECTION, SITE NOT SPECIF 08/15/2016 GEMMA DOABDIA Zaheer Ot F17.210 NICOTINE DEPENDENCE, CIGARETTES, UNCOMPL 08/15/2016 GEMMA DO, LITA K Ot L02.512 CUTANEOUS ABSCESS OF LEFT HAND 08/15/2016 GEMMA DO, LITA K Ot Z23 ENCOUNTER FOR IMMUNIZATION 08/17/2016 GEMMA DOABDIA K Ot F17.210 NICOTINE DEPENDENCE, CIGARETTES, UNCOMPL 08/17/2016 GEMMA , LITA K Ot L02.512 CUTANEOUS ABSCESS OF LEFT HAND 08/17/2016 GEMMA LITA K Ot Z23 ENCOUNTER FOR IMMUNIZATION 08/28/2016 IDRIS CAMACHO MD Ot B19.20 UNSPECIFIED VIRAL HEPATITIS C WITHOUT HE 08/28/2016 IDRIS CAMACHO MD, Ot E72.20 DISORDER OF UREA CYCLE METABOLISM, UNSPE 08/28/2016 IDRIS CAMACHO MD Ot F12.10 CANNABIS ABUSE, UNCOMPLICATED 08/28/2016 IDRIS CAMACHO MD, Ot F13.10 SEDATIVE, HYPNOTIC OR ANXIOLYTIC ABUSE, 08/28/2016 IDRIS CAMACHO MD, Ot F15.10 OTHER STIMULANT ABUSE, UNCOMPLICATED 08/28/2016 IDRIS CAMACHO MD, Ot F17.210 NICOTINE DEPENDENCE, CIGARETTES, UNCOMPL 08/28/2016 GAULT MD, IDRIS R Ot H92.02 OTALGIA, LEFT EAR 08/28/2016 IDRIS CAMACHO MD Ot I85.00 ESOPHAGEAL VARICES WITHOUT BLEEDING 08/28/2016 IDRIS CAMACHO MD Ot K59.00 CONSTIPATION, UNSPECIFIED 08/28/2016 IDRIS CAMACHO MD Ot K92.0 HEMATEMESIS 08/28/2016 IDRIS CAMACHO MD Ot L03.114 CELLULITIS OF LEFT UPPER LIMB 08/28/2016 IDRIS CAMACHO MD Ot R41.0 DISORIENTATION, UNSPECIFIED 08/28/2016 IDRIS CAMACHO MD Ot R51 HEADACHE 08/28/2016 IDRIS CAMACHO MD Ot Z79.899 OTHER CARE HOME (CURRENT) DRUG THERAPY 08/28/2016 IDRIS CAMACHO MD Ot B19.20 UNSPECIFIED VIRAL HEPATITIS C WITHOUT HE 08/28/2016 IDRIS CAMACHO MD Ot E72.20 DISORDER OF UREA CYCLE METABOLISM, UNSPE 08/28/2016 IDRIS CAMACHO MD Ot F12.10 CANNABIS ABUSE, UNCOMPLICATED 08/28/2016 IDRIS CAMACHO MD Ot F13.10 SEDATIVE, HYPNOTIC OR ANXIOLYTIC ABUSE, 08/28/2016 IDRIS CAMACHO MD Ot F15.10 OTHER STIMULANT ABUSE, UNCOMPLICATED 08/28/2016 IDRIS CAMACHO MD Ot F17.210 NICOTINE DEPENDENCE, CIGARETTES, UNCOMPL 08/28/2016 IDRIS CAMACHO MD Ot H92.02 OTALGIA, LEFT EAR 08/28/2016 IDRIS CAMACHO MD Ot I85.00 ESOPHAGEAL VARICES WITHOUT BLEEDING 08/28/2016 IDRIS CAMACHO MD Ot K59.00 CONSTIPATION, UNSPECIFIED 08/28/2016 IDRIS CAMACHO MD Ot K92.0 HEMATEMESIS 08/28/2016 IDRIS CAMACHO MD Ot L03.114 CELLULITIS OF LEFT UPPER LIMB 08/28/2016 IDRIS CAMACHO MD Ot R41.0 DISORIENTATION, UNSPECIFIED 08/28/2016 IDRIS CAMACHO MD Ot R51 HEADACHE 08/28/2016 IDRIS CAMACHO MD Ot Z79.899 OTHER HIGH SCHOOL ASSISTANT PRINCIPAL (CURRENT) DRUG THERAPY 09/21/2016 Ot 346.90 MIGRAINE UNSPECIFIED W/O INTRACT MGRN W/ 09/21/2016 Ot 525.10 UNSPEC ACQUIRED ABSENCE OF TEETH 09/21/2016 Ot 525.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, UNSPECFIED 09/21/2016 Ot 784.0 HEADACHE 09/24/2016 IDRIS CAMACHO MD Ot B19.10 UNSPECIFIED VIRAL HEPATITIS B WITHOUT HE 09/24/2016 IDRIS CAMACHO MD Ot B19.20 UNSPECIFIED VIRAL HEPATITIS C WITHOUT HE 09/24/2016 IDRIS CAMACHO MD Ot D69.6 THROMBOCYTOPENIA, UNSPECIFIED 09/24/2016 IDRIS CAMACHO MD Ot E03.9 HYPOTHYROIDISM, UNSPECIFIED 09/24/2016 IDRIS CAMACHO MD Ot F12.90 CANNABIS USE, UNSPECIFIED, UNCOMPLICATED 09/24/2016 IDRIS CAMACHO MD Ot 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, HYPNOTIC, OR ANXIOLYTIC USE, U 09/24/2016 IDRIS CAMACHO MD Ot F17.210 NICOTINE DEPENDENCE, CIGARETTES, UNCOMPL 09/24/2016 IDRIS CAMACHO MD Ot I85.00 ESOPHAGEAL VARICES WITHOUT BLEEDING 09/24/2016 IDRIS CAMACHO MD Ot K72.90 HEPATIC FAILURE, UNSPECIFIED WITHOUT COM 09/25/2016 IDRIS CAMACHO MD Ot B19.10 UNSPECIFIED VIRAL HEPATITIS B WITHOUT HE 09/25/2016 IDRIS CAMACHO MD Ot B19.20 UNSPECIFIED VIRAL HEPATITIS C WITHOUT HE 09/25/2016 IDRIS CAMACHO MD Ot D69.6 THROMBOCYTOPENIA, UNSPECIFIED 09/25/2016 IDRIS CAMACHO MD Ot E03.9 HYPOTHYROIDISM, UNSPECIFIED 09/25/2016 IDRIS CAMACHO MD Ot F12.90 CANNABIS USE, UNSPECIFIED, UNCOMPLICATED 09/25/2016 IDRIS CAMACHO MD Ot 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, HYPNOTIC, OR ANXIOLYTIC USE, U 09/25/2016 IDRIS CAMACHO MD Ot F17.210 NICOTINE DEPENDENCE, CIGARETTES, UNCOMPL 09/25/2016 IDRIS CAMACHO MD Ot I85.00 ESOPHAGEAL VARICES WITHOUT BLEEDING 09/25/2016 IDRIS CAMACHO MD Ot K72.90 HEPATIC FAILURE, UNSPECIFIED WITHOUT COM 05/04/2018 SAMIR MARIN ADMITTING K92.2 Gastrointestinal hemorrhage, unspecified 05/04/2018 TANIA, SAMIR K ADMITTING R11.2 Nausea with vomiting, unspecified Procedures Code Description Performed By Performed On 38.93 VENOUS CATHETERIZATION NEC 10/16/2008 33.24 ENDOSCOPIC BRONCHIAL BX 10/18/2008 86.05 INCIS W REM OF FORIEGN BODY OR DEV FROM 10/22/2008 HALINA AMMONIA 12/15/2015 CBC CBC WITH DIFF 12/15/2015 CMETPP COMPREHENSIVE METABOLIC PANEL 12/15/2015 LIP LIPASE 12/15/2015 PT PT/INR 12/15/2015 PTT PTT 12/15/2015 HALINA AMMONIA 12/15/2015 CBC CBC WITH DIFF 12/15/2015 CMETPP COMPREHENSIVE METABOLIC PANEL 12/15/2015 LIP LIPASE 12/15/2015 PT PT/INR 12/15/2015 PTT PTT 12/15/2015 HALINA AMMONIA 12/15/2015 CBC CBC WITH DIFF 12/15/2015 CMETPP COMPREHENSIVE METABOLIC PANEL 12/15/2015 LIP LIPASE 12/15/2015 PT PT/INR 12/15/2015 PTT PTT 12/15/2015 HALINA AMMONIA 12/15/2015 CBC CBC WITH DIFF 12/15/2015 CMETPP COMPREHENSIVE METABOLIC PANEL 12/15/2015 LIP LIPASE 12/15/2015 PT PT/INR 12/15/2015 PTT PTT 12/15/2015 HALINA AMMONIA 12/15/2015 CBC CBC WITH DIFF 12/15/2015 CMETPP COMPREHENSIVE METABOLIC PANEL 12/15/2015 LIP LIPASE 12/15/2015 PT PT/INR 12/15/2015 PTT PTT 12/15/2015 HALINA AMMONIA 12/15/2015 CBC CBC WITH DIFF 12/15/2015 CMETPP COMPREHENSIVE METABOLIC PANEL 12/15/2015 LIP LIPASE 12/15/2015 PT PT/INR 12/15/2015 PTT PTT 12/15/2015 HALINA AMMONIA 12/15/2015 CBC CBC WITH DIFF 12/15/2015 CMETPP COMPREHENSIVE METABOLIC PANEL 12/15/2015 LIP LIPASE 12/15/2015 PT PT/INR 12/15/2015 PTT PTT 12/15/2015 HALINA AMMONIA 12/15/2015 CBC CBC WITH DIFF 12/15/2015 CMETPP COMPREHENSIVE METABOLIC PANEL 12/15/2015 LIP LIPASE 12/15/2015 PT PT/INR 12/15/2015 PTT PTT 12/15/2015 HALINA AMMONIA 12/15/2015 CBC CBC WITH DIFF 12/15/2015 CMETPP COMPREHENSIVE METABOLIC PANEL 12/15/2015 GLUPOC GLUCOSE POCT 12/15/2015 HH HEMOGLOBIN AND HEMATOCRIT 12/15/2015 LIP LIPASE 12/15/2015 PREGU HCG URINE 12/15/2015 PT PT/INR 12/15/2015 PTT PTT 12/15/2015 TYSC TYPE AND SCREEN 12/15/2015 UA URINALYSIS AUTOMATED W MICROSCOPY 12/15/2015 HALINA AMMONIA 12/15/2015 CBC CBC WITH DIFF 12/15/2015 CMETPP COMPREHENSIVE METABOLIC PANEL 12/15/2015 GLUPOC GLUCOSE POCT 12/15/2015 HH HEMOGLOBIN AND HEMATOCRIT 12/15/2015 LIP LIPASE 12/15/2015 PREGU HCG URINE 12/15/2015 PT PT/INR 12/15/2015 PTT PTT 12/15/2015 TYSC TYPE AND SCREEN 12/15/2015 UA URINALYSIS AUTOMATED W MICROSCOPY 12/15/2015 HALINA AMMONIA 12/15/2015 CBC CBC WITH DIFF 12/15/2015 CMETPP COMPREHENSIVE METABOLIC PANEL 12/15/2015 GLUPOC GLUCOSE POCT 12/15/2015 HH HEMOGLOBIN AND HEMATOCRIT 12/15/2015 LIP LIPASE 12/15/2015 PREGU HCG URINE 12/15/2015 PT PT/INR 12/15/2015 PTT PTT 12/15/2015 TYSC TYPE AND SCREEN 12/15/2015 UA URINALYSIS AUTOMATED W MICROSCOPY 12/15/2015 HALINA AMMONIA 12/15/2015 CBC CBC WITH DIFF 12/15/2015 CMETPP COMPREHENSIVE METABOLIC PANEL 12/15/2015 GLUPOC GLUCOSE POCT 12/15/2015 HH HEMOGLOBIN AND HEMATOCRIT 12/15/2015 LIP LIPASE 12/15/2015 PREGU HCG URINE 12/15/2015 PT PT/INR 12/15/2015 PTT PTT 12/15/2015 TYSC TYPE AND SCREEN 12/15/2015 UA URINALYSIS AUTOMATED W MICROSCOPY 12/15/2015 HALINA AMMONIA 12/15/2015 CBC CBC WITH DIFF 12/15/2015 CMETPP COMPREHENSIVE METABOLIC PANEL 12/15/2015 GLUPOC GLUCOSE POCT 12/15/2015 HH HEMOGLOBIN AND HEMATOCRIT 12/15/2015 LIP LIPASE 12/15/2015 PREGU HCG URINE 12/15/2015 PT PT/INR 12/15/2015 PTT PTT 12/15/2015 TYSC TYPE AND SCREEN 12/15/2015 UA URINALYSIS AUTOMATED W MICROSCOPY 12/15/2015 HALINA AMMONIA 12/16/2015 CBC CBC WITH DIFF 12/16/2015 CMETPP COMPREHENSIVE METABOLIC PANEL 12/16/2015 GLUPOC GLUCOSE POCT 12/16/2015 HH HEMOGLOBIN AND HEMATOCRIT 12/16/2015 LIP LIPASE 12/16/2015 PREGU HCG URINE 12/16/2015 PT PT/INR 12/16/2015 PTT PTT 12/16/2015 TYSC TYPE AND SCREEN 12/16/2015 UA URINALYSIS AUTOMATED W MICROSCOPY 12/16/2015 HALINA AMMONIA 12/16/2015 CBC CBC WITH DIFF 12/16/2015 CMETPP COMPREHENSIVE METABOLIC PANEL 12/16/2015 GLUPOC GLUCOSE POCT 12/16/2015 HH HEMOGLOBIN AND HEMATOCRIT 12/16/2015 LIP LIPASE 12/16/2015 PREGU HCG URINE 12/16/2015 PT PT/INR 12/16/2015 PTT PTT 12/16/2015 TYSC TYPE AND SCREEN 12/16/2015 UA URINALYSIS AUTOMATED W MICROSCOPY 12/16/2015 HALINA AMMONIA 12/16/2015 CBC CBC WITH DIFF 12/16/2015 CMETPP COMPREHENSIVE METABOLIC PANEL 12/16/2015 GLUPOC GLUCOSE POCT 12/16/2015 HH HEMOGLOBIN AND HEMATOCRIT 12/16/2015 LIP LIPASE 12/16/2015 PREGU HCG URINE 12/16/2015 PT PT/INR 12/16/2015 PTT PTT 12/16/2015 TYSC TYPE AND SCREEN 12/16/2015 UA URINALYSIS AUTOMATED W MICROSCOPY 12/16/2015 HALINA AMMONIA 12/16/2015 CBC CBC WITH DIFF 12/16/2015 CMETPP COMPREHENSIVE METABOLIC PANEL 12/16/2015 EGD EGD 12/16/2015 GLUPOC GLUCOSE POCT 12/16/2015 HH HEMOGLOBIN AND HEMATOCRIT 12/16/2015 LIP LIPASE 12/16/2015 PREGU HCG URINE 12/16/2015 PT PT/INR 12/16/2015 PTT PTT 12/16/2015 TYSC TYPE AND SCREEN 12/16/2015 UA URINALYSIS AUTOMATED W MICROSCOPY 12/16/2015 HALINA AMMONIA 12/16/2015 CBC CBC WITH DIFF 12/16/2015 CMETPP COMPREHENSIVE METABOLIC PANEL 12/16/2015 EGD EGD 12/16/2015 GLUPOC GLUCOSE POCT 12/16/2015 HH HEMOGLOBIN AND HEMATOCRIT 12/16/2015 LIP LIPASE 12/16/2015 PREGU HCG URINE 12/16/2015 PT PT/INR 12/16/2015 PTT PTT 12/16/2015 TYSC TYPE AND SCREEN 12/16/2015 UA URINALYSIS AUTOMATED W MICROSCOPY 12/16/2015 HALINA AMMONIA 12/16/2015 CBC CBC WITH DIFF 12/16/2015 CMETPP COMPREHENSIVE METABOLIC PANEL 12/16/2015 EGD EGD 12/16/2015 GLUPOC GLUCOSE POCT 12/16/2015 HH HEMOGLOBIN AND HEMATOCRIT 12/16/2015 LIP LIPASE 12/16/2015 PREGU HCG URINE 12/16/2015 PT PT/INR 12/16/2015 PTT PTT 12/16/2015 TYSC TYPE AND SCREEN 12/16/2015 UA URINALYSIS AUTOMATED W MICROSCOPY 12/16/2015 HALINA AMMONIA 12/16/2015 CBC CBC WITH DIFF 12/16/2015 CMETPP COMPREHENSIVE METABOLIC PANEL 12/16/2015 EGD EGD 12/16/2015 GLUPOC GLUCOSE POCT 12/16/2015 HH HEMOGLOBIN AND HEMATOCRIT 12/16/2015 LIP LIPASE 12/16/2015 PREGU HCG URINE 12/16/2015 PT PT/INR 12/16/2015 PTT PTT 12/16/2015 TYSC TYPE AND SCREEN 12/16/2015 UA URINALYSIS AUTOMATED W MICROSCOPY 12/16/2015 HALINA AMMONIA 12/16/2015 CBC CBC WITH DIFF 12/16/2015 CMETPP COMPREHENSIVE METABOLIC PANEL 12/16/2015 EGD EGD 12/16/2015 GLUPOC GLUCOSE POCT 12/16/2015 HH HEMOGLOBIN AND HEMATOCRIT 12/16/2015 LIP LIPASE 12/16/2015 PREGU HCG URINE 12/16/2015 PT PT/INR 12/16/2015 PTT PTT 12/16/2015 TYSC TYPE AND SCREEN 12/16/2015 UA URINALYSIS AUTOMATED W MICROSCOPY 12/16/2015 HALINA AMMONIA 12/16/2015 CBC CBC WITH DIFF 12/16/2015 CMETPP COMPREHENSIVE METABOLIC PANEL 12/16/2015 EGD EGD 12/16/2015 GLUPOC GLUCOSE POCT 12/16/2015 HH HEMOGLOBIN AND HEMATOCRIT 12/16/2015 LIP LIPASE 12/16/2015 PREGU HCG URINE 12/16/2015 PT PT/INR 12/16/2015 PTT PTT 12/16/2015 TPLT BLOOD BANK TO PREPARE PLATELET PHERESIS LEUKOCYTE REDUCED (1 PHERESIS=6-8 SINGLE UNITS) 12/16/2015 TYSC TYPE AND SCREEN 12/16/2015 UA URINALYSIS AUTOMATED W MICROSCOPY 12/16/2015 HALINA AMMONIA 12/16/2015 CBC CBC WITH DIFF 12/16/2015 CMETPP COMPREHENSIVE METABOLIC PANEL 12/16/2015 EGD EGD 12/16/2015 GLUPOC GLUCOSE POCT 12/16/2015 HH HEMOGLOBIN AND HEMATOCRIT 12/16/2015 LIP LIPASE 12/16/2015 PREGU HCG URINE 12/16/2015 PT PT/INR 12/16/2015 PTT PTT 12/16/2015 TPLT BLOOD BANK TO PREPARE PLATELET PHERESIS LEUKOCYTE REDUCED (1 PHERESIS=6-8 SINGLE UNITS) 12/16/2015 TYSC TYPE AND SCREEN 12/16/2015 UA URINALYSIS AUTOMATED W MICROSCOPY 12/16/2015 HALINA AMMONIA 12/16/2015 CBC CBC WITH DIFF 12/16/2015 CMETPP COMPREHENSIVE METABOLIC PANEL 12/16/2015 EGD EGD 12/16/2015 GLUPOC GLUCOSE POCT 12/16/2015 HH HEMOGLOBIN AND HEMATOCRIT 12/16/2015 LIP LIPASE 12/16/2015 PREGU HCG URINE 12/16/2015 PT PT/INR 12/16/2015 PTT PTT 12/16/2015 TPLT BLOOD BANK TO PREPARE PLATELET PHERESIS LEUKOCYTE REDUCED (1 PHERESIS=6-8 SINGLE UNITS) 12/16/2015 TYSC TYPE AND SCREEN 12/16/2015 UA URINALYSIS AUTOMATED W MICROSCOPY 12/16/2015 HALINA AMMONIA 12/17/2015 CBC CBC WITH DIFF 12/17/2015 CMETPP COMPREHENSIVE METABOLIC PANEL 12/17/2015 EGD EGD 12/17/2015 GLUPOC GLUCOSE POCT 12/17/2015 HH HEMOGLOBIN AND HEMATOCRIT 12/17/2015 LIP LIPASE 12/17/2015 PREGU HCG URINE 12/17/2015 PT PT/INR 12/17/2015 PTT PTT 12/17/2015 TPLT BLOOD BANK TO PREPARE PLATELET PHERESIS LEUKOCYTE REDUCED (1 PHERESIS=6-8 SINGLE UNITS) 12/17/2015 TYSC TYPE AND SCREEN 12/17/2015 UA URINALYSIS AUTOMATED W MICROSCOPY 12/17/2015 HALINA AMMONIA 12/17/2015 CBC CBC WITH DIFF 12/17/2015 CMETPP COMPREHENSIVE METABOLIC PANEL 12/17/2015 EGD EGD 12/17/2015 GLUPOC GLUCOSE POCT 12/17/2015 HH HEMOGLOBIN AND HEMATOCRIT 12/17/2015 LIP LIPASE 12/17/2015 PREGU HCG URINE 12/17/2015 PT PT/INR 12/17/2015 PTT PTT 12/17/2015 TPLT BLOOD BANK TO PREPARE PLATELET PHERESIS LEUKOCYTE REDUCED (1 PHERESIS=6-8 SINGLE UNITS) 12/17/2015 TYSC TYPE AND SCREEN 12/17/2015 UA URINALYSIS AUTOMATED W MICROSCOPY 12/17/2015 HALINA AMMONIA 12/17/2015 CBC CBC WITH DIFF 12/17/2015 CMETPP COMPREHENSIVE METABOLIC PANEL 12/17/2015 EGD EGD 12/17/2015 GLUPOC GLUCOSE POCT 12/17/2015 HH HEMOGLOBIN AND HEMATOCRIT 12/17/2015 LIP LIPASE 12/17/2015 PREGU HCG URINE 12/17/2015 PT PT/INR 12/17/2015 PTT PTT 12/17/2015 TPLT BLOOD BANK TO PREPARE PLATELET PHERESIS LEUKOCYTE REDUCED (1 PHERESIS=6-8 SINGLE UNITS) 12/17/2015 TYSC TYPE AND SCREEN 12/17/2015 UA URINALYSIS AUTOMATED W MICROSCOPY 12/17/2015 HALINA AMMONIA 12/17/2015 CBC CBC WITH DIFF 12/17/2015 CMETPP COMPREHENSIVE METABOLIC PANEL 12/17/2015 EGD EGD 12/17/2015 GLUPOC GLUCOSE POCT 12/17/2015 HH HEMOGLOBIN AND HEMATOCRIT 12/17/2015 LIP LIPASE 12/17/2015 PREGU HCG URINE 12/17/2015 PT PT/INR 12/17/2015 PTT PTT 12/17/2015 TPLT BLOOD BANK TO PREPARE PLATELET PHERESIS LEUKOCYTE REDUCED (1 PHERESIS=6-8 SINGLE UNITS) 12/17/2015 TYSC TYPE AND SCREEN 12/17/2015 UA URINALYSIS AUTOMATED W MICROSCOPY 12/17/2015 HALINA AMMONIA 12/17/2015 CBC CBC WITH DIFF 12/17/2015 CMETPP COMPREHENSIVE METABOLIC PANEL 12/17/2015 EGD EGD 12/17/2015 GLUPOC GLUCOSE POCT 12/17/2015 HH HEMOGLOBIN AND HEMATOCRIT 12/17/2015 LIP LIPASE 12/17/2015 PREGU HCG URINE 12/17/2015 PT PT/INR 12/17/2015 PTT PTT 12/17/2015 TPLT BLOOD BANK TO PREPARE PLATELET PHERESIS LEUKOCYTE REDUCED (1 PHERESIS=6-8 SINGLE UNITS) 12/17/2015 TYSC TYPE AND SCREEN 12/17/2015 UA URINALYSIS AUTOMATED W MICROSCOPY 12/17/2015 HALINA AMMONIA 12/17/2015 CBC CBC WITH DIFF 12/17/2015 CMETPP COMPREHENSIVE METABOLIC PANEL 12/17/2015 EGD EGD 12/17/2015 GLUPOC GLUCOSE POCT 12/17/2015 HH HEMOGLOBIN AND HEMATOCRIT 12/17/2015 LIP LIPASE 12/17/2015 PREGU HCG URINE 12/17/2015 PT PT/INR 12/17/2015 PTT PTT 12/17/2015 TPLT BLOOD BANK TO PREPARE PLATELET PHERESIS LEUKOCYTE REDUCED (1 PHERESIS=6-8 SINGLE UNITS) 12/17/2015 TYSC TYPE AND SCREEN 12/17/2015 UA URINALYSIS AUTOMATED W MICROSCOPY 12/17/2015 HALINA AMMONIA 12/17/2015 CBC CBC WITH DIFF 12/17/2015 CMETPP COMPREHENSIVE METABOLIC PANEL 12/17/2015 EGD EGD 12/17/2015 GLUPOC GLUCOSE POCT 12/17/2015 HH HEMOGLOBIN AND HEMATOCRIT 12/17/2015 LIP LIPASE 12/17/2015 PREGU HCG URINE 12/17/2015 PT PT/INR 12/17/2015 PTT PTT 12/17/2015 TPLT BLOOD BANK TO PREPARE PLATELET PHERESIS LEUKOCYTE REDUCED (1 PHERESIS=6-8 SINGLE UNITS) 12/17/2015 TYSC TYPE AND SCREEN 12/17/2015 UA URINALYSIS AUTOMATED W MICROSCOPY 12/17/2015 HALINA AMMONIA 12/17/2015 CBC CBC WITH DIFF 12/17/2015 CMETPP COMPREHENSIVE METABOLIC PANEL 12/17/2015 EGD EGD 12/17/2015 GLUPOC GLUCOSE POCT 12/17/2015 HH HEMOGLOBIN AND HEMATOCRIT 12/17/2015 LIP LIPASE 12/17/2015 PREGU HCG URINE 12/17/2015 PT PT/INR 12/17/2015 PTT PTT 12/17/2015 TPLT BLOOD BANK TO PREPARE PLATELET PHERESIS LEUKOCYTE REDUCED (1 PHERESIS=6-8 SINGLE UNITS) 12/17/2015 TYSC TYPE AND SCREEN 12/17/2015 UA URINALYSIS AUTOMATED W MICROSCOPY 12/17/2015 HALINA AMMONIA 12/17/2015 CBC CBC WITH DIFF 12/17/2015 CMETPP COMPREHENSIVE METABOLIC PANEL 12/17/2015 EGD EGD 12/17/2015 GLUPOC GLUCOSE POCT 12/17/2015 HH HEMOGLOBIN AND HEMATOCRIT 12/17/2015 LIP LIPASE 12/17/2015 PREGU HCG URINE 12/17/2015 PT PT/INR 12/17/2015 PTT PTT 12/17/2015 TPLT BLOOD BANK TO PREPARE PLATELET PHERESIS LEUKOCYTE REDUCED (1 PHERESIS=6-8 SINGLE UNITS) 12/17/2015 TYSC TYPE AND SCREEN 12/17/2015 UA URINALYSIS AUTOMATED W MICROSCOPY 12/17/2015 HALINA AMMONIA 12/18/2015 CBC CBC WITH DIFF 12/18/2015 CMETPP COMPREHENSIVE METABOLIC PANEL 12/18/2015 EGD EGD 12/18/2015 GLUPOC GLUCOSE POCT 12/18/2015 HH HEMOGLOBIN AND HEMATOCRIT 12/18/2015 LIP LIPASE 12/18/2015 PREGU TEST, QUAL, URINE 12/18/2015 PT PT/INR 12/18/2015 PTT PTT 12/18/2015 TPLT BLOOD BANK TO PREPARE PLATELET PHERESIS LEUKOCYTE REDUCED (1 PHERESIS=6-8 SINGLE UNITS) 12/18/2015 TYSC TYPE AND SCREEN 12/18/2015 UA URINALYSIS AUTOMATED W MICROSCOPY 12/18/2015 Results Test Result Range CBC WITH DIFF - 12/15/15 08:40 WBC 3.6 10*3/uL 4.0-10.8 RBC 3.83 10*6/uL 4.20-5.40 HGB 12.9 g/dL 12.0-16.0 HCT 37.5 % 37-47 MCV 98 fL 81-99 MCH 34 pg 26-34 MCHC 34 g/dL 31-37 PLATELET COUNT 41 10*3/uL 150-400 RDWCV 14.0 % 11.5-14.5 DIFF TYPE AUTOMATED DIFF NEUTROPHIL % 71 % 36-66 LYMPHOCYTE % 16 % 24-44 MONOCYTE % 12 % 1-10 EOSINOPHIL % 2 % 0-6 BASOPHIL % 1 % 0-2 ABS. NEUTROPHILS 2.5 10*3/uL 1.55-7.13 ABS. LYMPHOCYTES 0.6 10*3/uL 1.0-4.8 ABS. MONOCYTES 0.4 10*3/uL 0.4-1.08 ABS. EOSINOPHILS 0.1 10*3/uL 0.0-0.65 ABS. BASOPHILS 0.0 10*3/uL 0.0-0.11 ABSOLUTE NUCLEATED RBC 0.10 10*3/uL PT/INR - 12/15/15 08:40 PT 16.5 s 11.8-15.0 INR 1.3 PTT - 12/15/15 08:40 PTT 34.1 s 24.3-36.8 AMMONIA - 12/15/15 08:40 AMMONIA 45 umol/L 18-72 COMPREHENSIVE METABOLIC PANEL - 12/15/15 08:40 POTASSIUM 4.1 mmol/L 3.5-5.1 CALCIUM 9.6 mg/dL 8.6-10.6 GLUCOSE 98 mg/dL 70-115 BUN 13 mg/dL 8-22 CREATININE 0.8 mg/dL 0.6-1.1 SODIUM 136 mmol/L 136-145 CHLORIDE 102 mmol/L 98-110 CO2 23 mmol/L 22-29 GFR ESTIMATED NOT AFR/AM >60 GFR ESTIMATED IF AFR/AM >60 ALT-SGPT 38 U/L 0-55 AST-SGOT 51 U/L 5-34 TOTAL PROTEIN,SERUM 7.2 g/dL 6-8.3 ALBUMIN 4.2 g/dL 3.6-5.3 ALKALINE PHOSPHATASE 85 U/L 40-150 TOTAL BILIRUBIN 2.2 mg/dL 0.2-1.2 ANION GAP 11 5-15 GLOBULIN, CALCULATED 3.0 g/dL A/G RATIO 1.4 ratio 1-1.8 LIPASE - 12/15/15 08:40 LIPASE 44 U/L 8-78 GLUCOSE POCT - 12/15/15 12:46 GLUCOSE BY METER 101 mg/dL 70-115 TYPE AND SCREEN - 12/15/15 12:46 ABO/RH (D) O POSITIVE ANTIBODY SCREEN NEGATIVE HEMOGLOBIN AND HEMATOCRIT - 12/15/15 14:45 HGB 13.1 g/dL 12.0-16.0 HCT 37.4 % 37-47 PT/INR - 12/15/15 14:45 PT 17.5 s 11.8-15.0 INR 1.4 PTT - 12/15/15 14:45 PTT 35.8 s 24.3-36.8 HCG URINE - 12/15/15 16:28 PREG TEST, URINE NEGATIVE URINALYSIS AUTOMATED W MICROSCOPY - 12/15/15 16:29 SPECIMEN VOIDED URINE COLOR YELLOW APPEARANCE CLEAR CLEAR SPECIFIC GRAVITY 1.008 1.005-1.030 PH, URINE 5.0 5.0-9.0 PROTEIN NEGATIVE mg/dL NEGATIVE GLUC NEGATIVE mg/dL NEGATIVE KETONES NEGATIVE mg/dL NEGATIVE BILIRUBIN NEGATIVE NEGATIVE BLOOD NEGATIVE NEGATIVE NITRITE NEGATIVE NEGATIVE UROBILINOGEN NORMAL mg/dL NORMAL LEUKOCYTE ESTERASE NEGATIVE NEGATIVE WBC'S <1 [HPF] 0-4 MUCUS OCCASIONAL [LPF] NEGATIVE SQUAMOUS EPITHELIAL CELLS 2 [HPF] 0-1 BACTERIA RARE [HPF] NEGATIVE HEMOGLOBIN AND HEMATOCRIT - 12/15/15 19:25 HGB 12.4 g/dL 12.0-16.0 HCT 36.3 % 37-47 HEMOGLOBIN AND HEMATOCRIT - 12/15/15 22:53 HGB 11.8 g/dL 12.0-16.0 HCT 32.7 % 37-47 COMPREHENSIVE METABOLIC PANEL - 12/16/15 06:59 POTASSIUM 3.6 mmol/L 3.5-5.1 CALCIUM 8.5 mg/dL 8.6-10.6 GLUCOSE 97 mg/dL 70-115 BUN 16 mg/dL 8-22 CREATININE 0.9 mg/dL 0.6-1.1 SODIUM 140 mmol/L 136-145 CHLORIDE 109 mmol/L 98-110 CO2 25 mmol/L 22-29 GFR ESTIMATED NOT AFR/AM >60 GFR ESTIMATED IF AFR/AM >60 ALT-SGPT 28 U/L 0-55 AST-SGOT 38 U/L 5-34 TOTAL PROTEIN,SERUM 5.9 g/dL 6-8.3 ALBUMIN 3.5 g/dL 3.6-5.3 ALKALINE PHOSPHATASE 72 U/L 40-150 TOTAL BILIRUBIN 1.1 mg/dL 0.2-1.2 ANION GAP 6 5-15 GLOBULIN, CALCULATED 2.4 g/dL A/G RATIO 1.5 ratio 1-1.8 CBC WITH DIFF - 12/16/15 06:59 WBC 1.6 10*3/uL 4.3-10.8 RBC 3.13 10*6/uL 4.20-5.40 HGB 10.4 g/dL 12.0-16.0 HCT 29.7 % 37-47 MCV 95 fL 81-99 MCH 33 pg 26-34 MCHC 35 g/dL 31-37 PLATELET COUNT 37 10*3/uL 150-400 RDWCV 14.0 % 11.5-14.5 DIFF TYPE MANUAL DIFF SEG NEUTROPHILS 59 % 36-66 BAND NEUTROPHILS 1 % 5-11 LYMPHOCYTES 34 % 24-44 EOSINOPHILS 1 % 0-10 NEUTROPHILS, ABSOLUTE 1.0 10*3/uL 1.55-7.13 LYMPHOCYTES, ABSOLUTE 0.5 10*3/uL 1.0-4.8 EOSINOPHILS, ABSOLUTE 0.0 10*3/uL 0.0-0.65 PLATELET ESTIMATE SEE NOTES MONOCYTES 5 % 1-10 MONOCYTES, ABSOLUTE 0.1 10*3/uL 0.4-1.08 BLOOD BANK TO PREPARE PLATELET PHERESIS LEUKOCYTE REDUCED (1 PHERESIS=6-8 SINGLE UNITS) - 12/16/15 13:23 UNIT NUMBER [id number] BLOOD COMPONENT TYPE APHER LR [facility] UNIT DIVISION 00 STATUS OF UNIT ISSUED,FINAL TRANSFUSION STATUS OK TO TRANSFUSE UNITS ORDERED 1 ISBT PRODUCT CODE [id number] HEMOGLOBIN AND HEMATOCRIT - 12/16/15 14:49 HGB 11.3 g/dL 12.0-16.0 HCT 30.8 % 37-47 HEMOGLOBIN AND HEMATOCRIT - 12/16/15 22:19 HGB 11.2 g/dL 12.0-16.0 HCT 31.4 % 37-47 AMMONIA - 12/17/15 08:25 AMMONIA 65 umol/L 18-72 CBC WITH DIFF - 12/17/15 08:25 WBC 1.7 10*3/uL 4.0-10.8 RBC 3.64 10*6/uL 4.20-5.40 HGB 12.2 g/dL 12.0-16.0 HCT 35.4 % 37-47 MCV 97 fL 81-99 MCH 34 pg 26-34 MCHC 34 g/dL 31-37 PLATELET COUNT 36 10*3/uL 150-400 RDWCV 13.7 % 11.5-14.5 DIFF TYPE AUTOMATED DIFF NEUTROPHIL % 52 % 36-66 LYMPHOCYTE % 31 % 24-44 MONOCYTE % 14 % 1-10 EOSINOPHIL % 2 % 0-6 BASOPHIL % 1 % 0-2 ABS. NEUTROPHILS 1.0 10*3/uL 1.55-7.13 ABS. LYMPHOCYTES 0.5 10*3/uL 1.0-4.8 ABS. MONOCYTES 0.2 10*3/uL 0.4-1.08 ABS. EOSINOPHILS 0.0 10*3/uL 0.0-0.65 ABS. BASOPHILS 0.0 10*3/uL 0.0-0.11 PLATELET ESTIMATE SEE NOTES CBC WITH DIFF - 12/18/15 07:15 WBC 6.9 10*3/uL 4.0-10.8 RBC 3.72 10*6/uL 4.20-5.40 HGB 12.4 g/dL 12.0-16.0 HCT 36.5 % 37-47 MCV 98 fL 81-99 MCH 33 pg 26-34 MCHC 34 g/dL 31-37 PLATELET COUNT 52 10*3/uL 150-400 RDWCV 14.6 % 11.5-14.5 DIFF TYPE AUTOMATED DIFF RBC MORPHOLOGY SEE NOTES NEUTROPHIL % 88 % 36-66 LYMPHOCYTE % 6 % 24-44 MONOCYTE % 6 % 1-10 EOSINOPHIL % 0 % 0-6 BASOPHIL % 0 % 0-2 ABS. NEUTROPHILS 6.1 10*3/uL 1.55-7.13 ABS. LYMPHOCYTES 0.4 10*3/uL 1.0-4.8 ABS. MONOCYTES 0.4 10*3/uL 0.4-1.08 ABS. EOSINOPHILS 0.0 10*3/uL 0.0-0.65 ABS. BASOPHILS 0.0 10*3/uL 0.0-0.11 PLATELET ESTIMATE SEE NOTES COMMENT SEE NOTES AMMONIA - 12/18/15 11:43 AMMONIA 56 umol/L 18-72 CBC+Platelet+Hem Review - 06/29/16 16:34 WBC TNP x10E3/uL RBC TNP Hemoglobin TNP Hematocrit TNP Platelets TNP Neutrophils TNP % Lymphs TNP Monocytes TNP Comp. Metabolic Panel (14) - 06/29/16 16:34 Glucose, Serum 112 mg/dL 65-99 BUN 7 mg/dL 6-24 Creatinine, Serum 0.79 mg/dL 0.57-1.00 eGFR If NonAfricn Am 88 mL/min/1.73 >59 eGFR If Africn Am 102 mL/min/1.73 >59 BUN/Creatinine Ratio 9 9-23 Sodium, Serum 141 mmol/L 134-144 Potassium, Serum 4.7 mmol/L 3.5-5.2 Chloride, Serum 100 mmol/L 97-108 Carbon Dioxide, Total 18 mmol/L 18-29 Calcium, Serum 9.0 mg/dL 8.7-10.2 Protein, Total, Serum 7.0 g/dL 6.0-8.5 Albumin, Serum 3.3 g/dL 3.5-5.5 Globulin, Total 3.7 g/dL 1.5-4.5 A/G Ratio 0.9 1.1-2.5 Bilirubin, Total 1.0 mg/dL 0.0-1.2 Alkaline Phosphatase, S 194 IU/L 39-117 AST (SGOT) 59 IU/L 0-40 ALT (SGPT) 32 IU/L 0-32 Bilirubin, Direct - 06/29/16 16:34 Bilirubin, Direct 0.34 mg/dL 0.00-0.40 Ammonia, Plasma - 06/29/16 16:34 Ammonia, Plasma 565 ug/dL 19-87 Request Problem - 06/29/16 16:34 Request Problem TNP Gram stain microscopy - 08/15/16 22:25 GRAM STAIN RESULT FEW GRAM POSITIVE COCCI RESEMBLING STAPH NRG Bacteria identification in wound by culture - 08/15/16 22:25 Bacteria identification in wound by culture [id number] NRG FREE TEXT EXTERNAL SENSITIVITY REPORTED 08/18 14:05 NRG QUANTITY OF GROWTH Moderate Growth NRG MRSA AGAR Screening test for MRSA is NEGATIVE (Final to follow) NR Bacterial susceptibility panel - 08/15/16 22:25 Oxacillin susceptibility test by minimum inhibitory concentration 0.5 NRG Gentamicin susceptibility test by minimum inhibitory concentration < = NRG Clindamycin susceptibility test by minimum inhibitory concentration <= NRG Erythromycin susceptibility test by minimum inhibitory concentration >= NRG Trimethoprim/sulfamethoxazole susceptibility test by minimum inhibitoryconcentration <= NRG Vancomycin susceptibility test by minimum inhibitory concentration < = NRG Levofloxacin susceptibility test by minimum inhibitory concentration 0.25 NRG Rifampin susceptibility test by minimum inhibitory concentration <= NRG Tetracycline susceptibility test by minimum inhibitory concentration <= NRG Complete blood count (CBC) with automated white blood cell (WBC) differential - 08/27/16 03:30 Blood leukocytes automated count (number/volume) 8.4 10*3/uL 4.3-11.0 Blood erythrocytes automated count (number/volume) 3.63 10*6/uL 4.35-5.85 Venous blood hemoglobin measurement (mass/volume) 11.3 g/dL 11.5-16.0 Blood hematocrit (volume fraction) 33 % 35-52 Automated erythrocyte mean corpuscular volume 91 [foz_us] 80-99 Automated erythrocyte mean corpuscular hemoglobin (mass per erythrocyte) 31 pg 25-34 Automated erythrocyte mean corpuscular hemoglobin concentration measurement ( mass/volume) 34 g/dL 32-36 Automated erythrocyte distribution width ratio 16.4 % 10.0-14.5 Automated blood platelet count (count/volume) 101 10*3/uL 130-400 Automated blood platelet mean volume measurement 9.9 [foz_us] 7.4-10.4 Automated blood neutrophils/100 leukocytes 73 % 42-75 Automated blood lymphocytes/100 leukocytes 14 % 12-44 Blood monocytes/100 leukocytes 11 % 0-12 Automated blood eosinophils/100 leukocytes 1 % 0-10 Automated blood basophils/100 leukocytes 1 % 0-10 Blood neutrophils automated count (number/volume) 6.1 10*3 1.8-7.8 Blood lymphocytes automated count (number/volume) 1.2 10*3 1.0-4.0 Blood monocytes automated count (number/volume) 0.9 10*3 0.0-1.0 Automated eosinophil count 0.1 10*3/uL 0.0-0.3 Automated blood basophil count (count/volume) 0.1 10*3/uL 0.0-0.1 PT panel in platelet poor plasma by coagulation assay - 08/27/16 03:30 Prothrombin time (PT) in platelet poor plasma by coagulation assay 18.1 s 12.2-14.7 INR in platelet poor plasma or blood by coagulation assay 1.5 0.8-1.4 Activated partial thromboplastin time (aPTT) in platelet poor plasma bycoagulation assay - 08/27/16 03:30 Activated partial thromboplastin time (aPTT) in platelet poor plasma bycoagulation assay 38 s 24-35 Comprehensive metabolic panel - 08/27/16 03:30 Serum or plasma sodium measurement (moles/volume) 140 mmol/L 135-145 Serum or plasma potassium measurement (moles/volume) 3.6 mmol/L 3.6-5.0 Serum or plasma chloride measurement (moles/volume) 106 mmol/L 98-107 Carbon dioxide 20 mmol/L 21-32 Serum or plasma anion gap determination (moles/volume) 14 mmol/L 5-14 Serum or plasma urea nitrogen measurement (mass/volume) 16 mg/dL 7-18 Serum or plasma creatinine measurement (mass/volume) 0.93 mg/dL 0.60-1.30 Serum or plasma urea nitrogen/creatinine mass ratio 17 NRG Serum or plasma creatinine measurement with calculation of estimated glomerular filtration rate > NRG Serum or plasma glucose measurement (mass/volume) 78 mg/dL 70-105 Serum or plasma calcium measurement (mass/volume) 9.6 mg/dL 8.5-10.1 Serum or plasma total bilirubin measurement (mass/volume) 4.5 mg/dL 0.1-1.0 Serum or plasma alkaline phosphatase measurement (enzymatic activity/volume) 164 U/L 40-136 Serum or plasma aspartate aminotransferase measurement (enzymatic activity/ volume) 84 U/L 5-34 Serum or plasma alanine aminotransferase measurement (enzymatic activity/volume ) 42 U/L 0-55 Serum or plasma protein measurement (mass/volume) 7.1 g/dL 6.4-8.2 Serum or plasma albumin measurement (mass/volume) 3.6 g/dL 3.2-4.5 Magnesium - 08/27/16 03:30 Magnesium 1.7 mg/dL 1.8-2.4 Lipase - 08/27/16 03:30 Lipase 13 U/L 8-78 Ammonia - 08/27/16 03:30 Ammonia 36 umol/L 11-32 Serum or plasma ethanol measurement (mass/volume) - 08/27/16 03:30 Serum or plasma ethanol measurement (mass/volume) < mg/dL <10 Urine drug screening test - 08/27/16 04:42 Urine phencyclidine detection by screening method NEGATIVE NEGATIVE Urine benzodiazepines detection by screening method POSITIVE NEGATIVE Urine cocaine detection NEGATIVE NEGATIVE Urine amphetamines detection by screening method POSITIVE NEGATIVE Urine methamphetamine detection by screening method POSITIVE NEGATIVE Urine cannabinoids detection by screening method POSITIVE NEGATIVE Urine opiates detection by screening method NEGATIVE NEGATIVE Urine barbiturates detection NEGATIVE NEGATIVE Screening urine tricyclic antidepressants detection NEGATIVE NEGATIVE Urine methadone detection by screening method NEGATIVE NEGATIVE Urine oxycodone detection NEGATIVE NEGATIVE Urine propoxyphene detection NEGATIVE NEGATIVE Automated blood complete blood count (hemogram) panel - 08/27/16 16:50 Blood leukocytes automated count (number/volume) 5.1 10*3/uL 4.3-11.0 Blood erythrocytes automated count (number/volume) 3.28 10*6/uL 4.35-5.85 Venous blood hemoglobin measurement (mass/volume) 10.2 g/dL 11.5-16.0 Blood hematocrit (volume fraction) 30 % 35-52 Automated erythrocyte mean corpuscular volume 92 [foz_us] 80-99 Automated erythrocyte mean corpuscular hemoglobin (mass per erythrocyte) 31 pg 25-34 Automated erythrocyte mean corpuscular hemoglobin concentration measurement ( mass/volume) 34 g/dL 32-36 Automated erythrocyte distribution width ratio 16.4 % 10.0-14.5 Automated blood platelet count (count/volume) 89 10*3/uL 130-400 Automated blood platelet mean volume measurement 9.9 [foz_us] 7.4-10.4 Comprehensive metabolic panel - 08/27/16 16:50 Serum or plasma sodium measurement (moles/volume) 137 mmol/L 135-145 Serum or plasma potassium measurement (moles/volume) 3.3 mmol/L 3.6-5.0 Serum or plasma chloride measurement (moles/volume) 105 mmol/L 98-107 Carbon dioxide 23 mmol/L 21-32 Serum or plasma anion gap determination (moles/volume) 9 mmol/L 5-14 Serum or plasma urea nitrogen measurement (mass/volume) 13 mg/dL 7-18 Serum or plasma creatinine measurement (mass/volume) 1.03 mg/dL 0.60-1.30 Serum or plasma urea nitrogen/creatinine mass ratio 13 NRG Serum or plasma creatinine measurement with calculation of estimated glomerular filtration rate 57 NRG Serum or plasma glucose measurement (mass/volume) 159 mg/dL 70-105 Serum or plasma calcium measurement (mass/volume) 8.8 mg/dL 8.5-10.1 Serum or plasma total bilirubin measurement (mass/volume) 3.0 mg/dL 0.1-1.0 Serum or plasma alkaline phosphatase measurement (enzymatic activity/volume) 144 U/L 40-136 Serum or plasma aspartate aminotransferase measurement (enzymatic activity/ volume) 71 U/L 5-34 Serum or plasma alanine aminotransferase measurement (enzymatic activity/volume ) 40 U/L 0-55 Serum or plasma protein measurement (mass/volume) 6.4 g/dL 6.4-8.2 Serum or plasma albumin measurement (mass/volume) 3.3 g/dL 3.2-4.5 Automated blood complete blood count (hemogram) panel - 08/28/16 05:20 Blood leukocytes automated count (number/volume) 2.7 10*3/uL 4.3-11.0 Blood erythrocytes automated count (number/volume) 3.00 10*6/uL 4.35-5.85 Venous blood hemoglobin measurement (mass/volume) 9.2 g/dL 11.5-16.0 Blood hematocrit (volume fraction) 28 % 35-52 Automated erythrocyte mean corpuscular volume 92 [foz_us] 80-99 Automated erythrocyte mean corpuscular hemoglobin (mass per erythrocyte) 31 pg 25-34 Automated erythrocyte mean corpuscular hemoglobin concentration measurement ( mass/volume) 33 g/dL 32-36 Automated erythrocyte distribution width ratio 16.0 % 10.0-14.5 Automated blood platelet count (count/volume) 62 10*3/uL 130-400 Automated blood platelet mean volume measurement 9.7 [foz_us] 7.4-10.4 PT panel in platelet poor plasma by coagulation assay - 08/28/16 05:20 Prothrombin time (PT) in platelet poor plasma by coagulation assay 18.8 s 12.2-14.7 INR in platelet poor plasma or blood by coagulation assay 1.6 0.8-1.4 Comprehensive metabolic panel - 08/28/16 05:20 Serum or plasma sodium measurement (moles/volume) 141 mmol/L 135-145 Serum or plasma potassium measurement (moles/volume) 3.7 mmol/L 3.6-5.0 Serum or plasma chloride measurement (moles/volume) 111 mmol/L 98-107 Carbon dioxide 19 mmol/L 21-32 Serum or plasma anion gap determination (moles/volume) 11 mmol/L 5-14 Serum or plasma urea nitrogen measurement (mass/volume) 12 mg/dL 7-18 Serum or plasma creatinine measurement (mass/volume) 0.84 mg/dL 0.60-1.30 Serum or plasma urea nitrogen/creatinine mass ratio 14 NRG Serum or plasma creatinine measurement with calculation of estimated glomerular filtration rate > NRG Serum or plasma glucose measurement (mass/volume) 96 mg/dL 70-105 Serum or plasma calcium measurement (mass/volume) 8.8 mg/dL 8.5-10.1 Serum or plasma total bilirubin measurement (mass/volume) 2.0 mg/dL 0.1-1.0 Serum or plasma alkaline phosphatase measurement (enzymatic activity/volume) 125 U/L 40-136 Serum or plasma aspartate aminotransferase measurement (enzymatic activity/ volume) 70 U/L 5-34 Serum or plasma alanine aminotransferase measurement (enzymatic activity/volume ) 32 U/L 0-55 Serum or plasma protein measurement (mass/volume) 5.7 g/dL 6.4-8.2 Serum or plasma albumin measurement (mass/volume) 2.9 g/dL 3.2-4.5 Capillary blood glucose measurement by glucometer (mass/volume) - 09/23/16 04: 04 Capillary blood glucose measurement by glucometer (mass/volume) 119 mg/dL 70-110 Complete blood count (CBC) with automated white blood cell (WBC) differential - 09/23/16 04:20 Blood leukocytes automated count (number/volume) 6.2 10*3/uL 4.3-11.0 Blood erythrocytes automated count (number/volume) 3.81 10*6/uL 4.35-5.85 Venous blood hemoglobin measurement (mass/volume) 11.9 g/dL 11.5-16.0 Blood hematocrit (volume fraction) 35 % 35-52 Automated erythrocyte mean corpuscular volume 91 [foz_us] 80-99 Automated erythrocyte mean corpuscular hemoglobin (mass per erythrocyte) 31 pg 25-34 Automated erythrocyte mean corpuscular hemoglobin concentration measurement ( mass/volume) 35 g/dL 32-36 Automated erythrocyte distribution width ratio 15.8 % 10.0-14.5 Automated blood platelet count (count/volume) 110 10*3/uL 130-400 Automated blood platelet mean volume measurement 10.0 [foz_us] 7.4-10.4 Automated blood neutrophils/100 leukocytes 69 % 42-75 Automated blood lymphocytes/100 leukocytes 17 % 12-44 Blood monocytes/100 leukocytes 10 % 0-12 Automated blood eosinophils/100 leukocytes 3 % 0-10 Automated blood basophils/100 leukocytes 1 % 0-10 Blood neutrophils automated count (number/volume) 4.3 10*3 1.8-7.8 Blood lymphocytes automated count (number/volume) 1.1 10*3 1.0-4.0 Blood monocytes automated count (number/volume) 0.6 10*3 0.0-1.0 Automated eosinophil count 0.2 10*3/uL 0.0-0.3 Automated blood basophil count (count/volume) 0.1 10*3/uL 0.0-0.1 Comprehensive metabolic panel - 09/23/16 04:20 Serum or plasma sodium measurement (moles/volume) 140 mmol/L 135-145 Serum or plasma potassium measurement (moles/volume) 4.1 mmol/L 3.6-5.0 Serum or plasma chloride measurement (moles/volume) 110 mmol/L 98-107 Carbon dioxide 20 mmol/L 21-32 Serum or plasma anion gap determination (moles/volume) 10 mmol/L 5-14 Serum or plasma urea nitrogen measurement (mass/volume) 15 mg/dL 7-18 Serum or plasma creatinine measurement (mass/volume) 0.81 mg/dL 0.60-1.30 Serum or plasma urea nitrogen/creatinine mass ratio 19 NRG Serum or plasma creatinine measurement with calculation of estimated glomerular filtration rate > NRG Serum or plasma glucose measurement (mass/volume) 117 mg/dL 70-105 Serum or plasma calcium measurement (mass/volume) 9.4 mg/dL 8.5-10.1 Serum or plasma total bilirubin measurement (mass/volume) 1.3 mg/dL 0.1-1.0 Serum or plasma alkaline phosphatase measurement (enzymatic activity/volume) 147 U/L 40-136 Serum or plasma aspartate aminotransferase measurement (enzymatic activity/ volume) 46 U/L 5-34 Serum or plasma alanine aminotransferase measurement (enzymatic activity/volume ) 35 U/L 0-55 Serum or plasma protein measurement (mass/volume) 6.9 g/dL 6.4-8.2 Serum or plasma albumin measurement (mass/volume) 3.4 g/dL 3.2-4.5 Magnesium - 09/23/16 04:20 Magnesium 2.1 mg/dL 1.8-2.4 Serum or plasma troponin i.cardiac measurement (mass/volume) - 09/23/16 04:20 Serum or plasma troponin i.cardiac measurement (mass/volume) < ng/ mL <0.30 Ammonia - 09/23/16 04:20 Ammonia 180 umol/L 11-32 Serum or plasma thyroxine (T4) free measurement (mass/volume) - 09/23/16 04:20 Serum or plasma thyroxine (T4) free measurement (mass/volume) 0.67 ng/dL 0.70-1.48 Serum or plasma thyrotropin measurement by detection limit <=0.05 miu/l (units/ volume) - 09/23/16 04:20 Serum or plasma thyrotropin measurement by detection limit <=0.05 miu/l (units/ volume) 5.95 u[iU]/mL 0.35-4.94 Serum or plasma acetaminophen measurement (mass/volume) - 09/23/16 04:20 Serum or plasma acetaminophen measurement (mass/volume) < ug/mL 10-30 Serum or plasma ethanol measurement (mass/volume) - 09/23/16 04:20 Serum or plasma ethanol measurement (mass/volume) < mg/dL <10 Complete urinalysis with reflex to culture - 09/23/16 04:31 Urine color determination YELLOW NRG Urine clarity determination CLEAR NRG Urine pH measurement by test strip 7 5-9 Specific gravity of urine by test strip 1.010 1.016- 1.022 Urine protein assay by test strip, semi-quantitative NEGATIVE NEGATIVE Urine glucose detection by automated test strip NEGATIVE NEGATIVE Erythrocytes detection in urine sediment by light microscopy NEGATIVE NEGATIVE Urine ketones detection by automated test strip NEGATIVE NEGATIVE Urine nitrite detection by test strip NEGATIVE NEGATIVE Urine total bilirubin detection by test strip NEGATIVE NEGATIVE Urine urobilinogen measurement by automated test strip (mass/volume) NORMAL NORMAL Urine leukocyte esterase detection by dipstick NEGATIVE NEGATIVE Automated urine sediment erythrocyte count by microscopy (number/high power field) NONE NRG Automated urine sediment leukocyte count by microscopy (number/high power field ) NONE NRG Bacteria detection in urine sediment by light microscopy NEGATIVE NRG Squamous epithelial cells detection in urine sediment by light microscopy RARE NRG Crystals detection in urine sediment by light microscopy NONE NRG Casts detection in urine sediment by light microscopy NONE NRG Mucus detection in urine sediment by light microscopy NEGATIVE NRG Complete urinalysis with reflex to culture NO NRG Renal epithelial cells detection in urine sediment by light microscopy 0-2 NRG Urine drug screening test - 09/23/16 04:31 Urine phencyclidine detection by screening method NEGATIVE NEGATIVE Urine benzodiazepines detection by screening method POSITIVE NEGATIVE Urine cocaine detection NEGATIVE NEGATIVE Urine amphetamines detection by screening method NEGATIVE NEGATIVE Urine methamphetamine detection by screening method NEGATIVE NEGATIVE Urine cannabinoids detection by screening method POSITIVE NEGATIVE Urine opiates detection by screening method NEGATIVE NEGATIVE Urine barbiturates detection NEGATIVE NEGATIVE Screening urine tricyclic antidepressants detection NEGATIVE NEGATIVE Urine methadone detection by screening method NEGATIVE NEGATIVE Urine oxycodone detection NEGATIVE NEGATIVE Urine propoxyphene detection NEGATIVE NEGATIVE Serum or plasma choriogonadotropin ( test) detection - 09/23/16 05:05 Serum or plasma choriogonadotropin ( test) detection NEGATIVE NEGATIVE Serum or plasma thyroxine (T4) free measurement (mass/volume) - 09/23/16 05:05 Serum or plasma thyroxine (T4) free measurement (mass/volume) 0.67 ng/dL 0.70-1.48 PT panel in platelet poor plasma by coagulation assay - 09/23/16 18:27 Prothrombin time (PT) in platelet poor plasma by coagulation assay 16.3 s 12.2-14.7 INR in platelet poor plasma or blood by coagulation assay 1.3 0.8-1.4 Activated partial thromboplastin time (aPTT) in platelet poor plasma bycoagulation assay - 09/23/16 18:27 Activated partial thromboplastin time (aPTT) in platelet poor plasma bycoagulation assay 34 s 24-35 Free triiodothyronine (T3) measurement - 09/23/16 18:27 T3 free 3.1 pg/mL 2.4-4.5 Complete blood count (CBC) with automated white blood cell (WBC) differential - 09/24/16 04:20 Blood leukocytes automated count (number/volume) 5.9 10*3/uL 4.3-11.0 Blood erythrocytes automated count (number/volume) 3.30 10*6/uL 4.35-5.85 Venous blood hemoglobin measurement (mass/volume) 10.3 g/dL 11.5-16.0 Blood hematocrit (volume fraction) 30 % 35-52 Automated erythrocyte mean corpuscular volume 92 [foz_us] 80-99 Automated erythrocyte mean corpuscular hemoglobin (mass per erythrocyte) 31 pg 25-34 Automated erythrocyte mean corpuscular hemoglobin concentration measurement ( mass/volume) 34 g/dL 32-36 Automated erythrocyte distribution width ratio 16.0 % 10.0-14.5 Automated blood platelet count (count/volume) 77 10*3/uL 130-400 Automated blood platelet mean volume measurement 10.1 [foz_us] 7.4-10.4 Automated blood neutrophils/100 leukocytes 67 % 42-75 Automated blood lymphocytes/100 leukocytes 18 % 12-44 Blood monocytes/100 leukocytes 12 % 0-12 Automated blood eosinophils/100 leukocytes 2 % 0-10 Automated blood basophils/100 leukocytes 1 % 0-10 Blood neutrophils automated count (number/volume) 4.0 10*3 1.8-7.8 Blood lymphocytes automated count (number/volume) 1.1 10*3 1.0-4.0 Blood monocytes automated count (number/volume) 0.7 10*3 0.0-1.0 Automated eosinophil count 0.1 10*3/uL 0.0-0.3 Automated blood basophil count (count/volume) 0.0 10*3/uL 0.0-0.1 Whole blood basic metabolic panel - 09/24/16 04:20 Serum or plasma sodium measurement (moles/volume) 141 mmol/L 135-145 Serum or plasma potassium measurement (moles/volume) 3.2 mmol/L 3.6-5.0 Serum or plasma chloride measurement (moles/volume) 110 mmol/L 98-107 Carbon dioxide 22 mmol/L 21-32 Serum or plasma anion gap determination (moles/volume) 9 mmol/L 5-14 Serum or plasma urea nitrogen measurement (mass/volume) 13 mg/dL 7-18 Serum or plasma creatinine measurement (mass/volume) 0.80 mg/dL 0.60-1.30 Serum or plasma urea nitrogen/creatinine mass ratio 16 NRG Serum or plasma creatinine measurement with calculation of estimated glomerular filtration rate > NRG Serum or plasma glucose measurement (mass/volume) 108 mg/dL 70-105 Serum or plasma calcium measurement (mass/volume) 8.3 mg/dL 8.5-10.1 Serum or plasma phosphate measurement (mass/volume) - 09/24/16 04:20 Serum or plasma phosphate measurement (mass/volume) 3.5 mg/dL 2.3-4.7 Magnesium - 09/24/16 04:20 Magnesium 1.7 mg/dL 1.8-2.4 Ammonia - 09/24/16 04:20 Ammonia 45 umol/L 11-32 Complete blood count (CBC) with automated white blood cell (WBC) differential - 09/25/16 06:25 Blood leukocytes automated count (number/volume) 4.3 10*3/uL 4.3-11.0 Blood erythrocytes automated count (number/volume) 3.55 10*6/uL 4.35-5.85 Venous blood hemoglobin measurement (mass/volume) 11.1 g/dL 11.5-16.0 Blood hematocrit (volume fraction) 32 % 35-52 Automated erythrocyte mean corpuscular volume 91 [foz_us] 80-99 Automated erythrocyte mean corpuscular hemoglobin (mass per erythrocyte) 31 pg 25-34 Automated erythrocyte mean corpuscular hemoglobin concentration measurement ( mass/volume) 35 g/dL 32-36 Automated erythrocyte distribution width ratio 15.6 % 10.0-14.5 Automated blood platelet count (count/volume) 79 10*3/uL 130-400 Automated blood platelet mean volume measurement 9.8 [foz_us] 7.4-10.4 Automated blood neutrophils/100 leukocytes 52 % 42-75 Automated blood lymphocytes/100 leukocytes 27 % 12-44 Blood monocytes/100 leukocytes 16 % 0-12 Automated blood eosinophils/100 leukocytes 3 % 0-10 Automated blood basophils/100 leukocytes 1 % 0-10 Blood neutrophils automated count (number/volume) 2.3 10*3 1.8-7.8 Blood lymphocytes automated count (number/volume) 1.2 10*3 1.0-4.0 Blood monocytes automated count (number/volume) 0.7 10*3 0.0-1.0 Automated eosinophil count 0.1 10*3/uL 0.0-0.3 Automated blood basophil count (count/volume) 0.0 10*3/uL 0.0-0.1 Whole blood basic metabolic panel - 09/25/16 06:25 Serum or plasma sodium measurement (moles/volume) 141 mmol/L 135-145 Serum or plasma potassium measurement (moles/volume) 3.7 mmol/L 3.6-5.0 Serum or plasma chloride measurement (moles/volume) 110 mmol/L 98-107 Carbon dioxide 24 mmol/L 21-32 Serum or plasma anion gap determination (moles/volume) 7 mmol/L 5-14 Serum or plasma urea nitrogen measurement (mass/volume) 10 mg/dL 7-18 Serum or plasma creatinine measurement (mass/volume) 0.81 mg/dL 0.60-1.30 Serum or plasma urea nitrogen/creatinine mass ratio 12 NRG Serum or plasma creatinine measurement with calculation of estimated glomerular filtration rate > NRG Serum or plasma glucose measurement (mass/volume) 100 mg/dL 70-105 Serum or plasma calcium measurement (mass/volume) 8.8 mg/dL 8.5-10.1 Serum or plasma phosphate measurement (mass/volume) - 09/25/16 06:25 Serum or plasma phosphate measurement (mass/volume) 3.7 mg/dL 2.3-4.7 Magnesium - 09/25/16 06:25 Magnesium 1.8 mg/dL 1.8-2.4 Encounters ACCT No. Visit Date/Time Discharge Status Pt. Type Provider Facility Loc./Unit Complaint [id number] 02/11/2012 10:09:00 02/11/2012 23:59:59 CLS Outpatient CARLOS BATES APRN [id number] 05/04/2018 09:23:00 05/04/2018 11:20:00 DIS Inpatient SAMIR MARIN [facility] [id number] 12/15/2015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
[2018-07-21] MEDS ORDERED: LORazepam INJ 2 MG/ML (ATIVAN) VIAL IVP ONE ×2 (03:00→04:15)
[2018-07-21 03:02] LABS: BASOPHILS % (AUTO) 0 % (0-10); EOSINOPHILS # (AUTO) 0.2 10^3/uL (0.0-0.3); EOSINOPHILS % (AUTO) 3 % (0-10); HEMATOCRIT 26 % (35-52); HEMOGLOBIN 9.1 G/DL (11.5-16.0); LYMPHOCYTES # (AUTO) 0.8 X 10^3 (1.0-4.0); LYMPHOCYTES % (AUTO) 11 % (12-44); MEAN CORPUSCULAR HEMOGLOBIN 32 PG (25-34); MEAN CORPUSCULAR HGB CONC 35 G/DL (32-36); MEAN CORPUSCULAR VOLUME 91 FL (80-99); MONOCYTES # (AUTO) 1.2 X 10^3 (0.0-1.0); MONOCYTES % (AUTO) 16 % (0-12); NEUTROPHILS # (AUTO) 5.2 X 10^3 (1.8-7.8); NEUTROPHILS % (AUTO) 70 % (42-75); PLATELET COUNT 57 10^3/uL (130-400); RED BLOOD COUNT 2.82 10^6/uL (4.35-5.85); RED CELL DISTRIBUTION WIDTH 13.3 % (10.0-14.5); WHITE BLOOD COUNT 7.4 10^3/uL (4.3-11.0)
[2018-07-21 03:22] LABS: ALANINE AMINOTRANSFERASE 127 U/L (0-55); ALBUMIN 3.2 GM/DL (3.2-4.5); ALKALINE PHOSPHATASE 103 U/L (40-136); AMMONIA 68 UMOL/L (11-32); BILIRUBIN,TOTAL 2.8 MG/DL (0.1-1.0); BUN/CREATININE RATIO 24; CALCIUM 8.7 MG/DL (8.5-10.1); CARBON DIOXIDE 18 MMOL/L (21-32); CHLORIDE 106 MMOL/L (98-107); CREATINE KINASE 895 U/L (29-168); CREATININE SERUM 1.48 MG/DL (0.60-1.30); GFR ESTIMATED 37; GLUCOSE 104 MG/DL (70-105); LIPASE 52 U/L (8-78); POTASSIUM 3.3 MMOL/L (3.6-5.0); SODIUM 134 MMOL/L (135-145); TOTAL PROTEIN 6.3 GM/DL (6.4-8.2)
[2018-07-21] MEDS ORDERED: NS IV 1000 ML 1,000 ML IV ONE (03:22)
[2018-07-21 03:34] LABS: BILIRUBIN,URINE NEGATIVE (NEGATIVE); CLARITY,URINE VERY CLOUDY; COLOR,URINE AMBER; GLUCOSE, URINE (UA) NEGATIVE (NEGATIVE); KETONES,URINE NEGATIVE (NEGATIVE); LEUKOCYTE ESTERASE ,URINE 3+ (NEGATIVE); NITRITE,URINE NEGATIVE (NEGATIVE); PH,URINE 6 (5-9); PROTEIN,URINE 2+ (NEGATIVE); UROBILINOGEN,URINE 4 MG/DL (NORMAL)
[2018-07-21 03:41] LABS: BACTERIA,URINE LARGE /HPF; RBC,URINE TNTC /HPF; WBC,URINE TNTC /HPF
[2018-07-21 03:48] LABS: AMPHETAMINE SCREEN, URINE POSITIVE (NEGATIVE); BARBITURATE SCREEN URINE NEGATIVE (NEGATIVE); BENZODIAZEPINES SCREEN URINE NEGATIVE (NEGATIVE); CANNABINOID SCREEN, URINE NEGATIVE (NEGATIVE); COCAINE SCREEN URINE NEGATIVE (NEGATIVE); METHADONE STAT NEGATIVE (NEGATIVE); METHAMPHETAMINE SCREEN URINE S POSITIVE (NEGATIVE); OPIATE SCREEN URINE POSITIVE (NEGATIVE); OXYCODONE STAT NEGATIVE (NEGATIVE); PROPOXYPHENE STAT NEGATIVE (NEGATIVE); TRICYCLIC ANTIDEPRESSANTS SCRE NEGATIVE (NEGATIVE)
[2018-07-21 03:50] LABS: INR 1.7 (0.8-1.4); PROTHROMBIN TIME PATIENT 20.4 SEC (12.2-14.7)
[2018-07-21] MEDS ORDERED: cefTRIAXone FOR IV USE 1,000 MG in NS (IVPB) 50 ML IV ONE (04:15)
[2018-07-21] MEDS ORDERED: TETANUS,DIPTH,PERTUSS P/F (BOOSTRIX) 0.5 ML VIAL IM ONE (04:30)
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
--- OUTSIDE RECORDS SUMMARY | 2018-07-21 05:53 | XMS REPORT | Clinical Summary ---
Author Author [facility] Organization [facility] Address Unknown Phone Unavailable Care Team Providers Care Screen Tender Helper Name Role Phone Constantino Warren MD [...] mouth Active MG chewable tablet daily. 2 [id number] mg butalbital-acetaminophen- Take 1 tablet by mouth [...]
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
--- NOTE | 2018-07-21 06:09 | Diagnostic Imaging Report ---
PROCEDURE: CT chest, abdomen, and pelvis with contrast. TECHNIQUE: Multiple contiguous axial images were obtained through the chest, abdomen, and pelvis after the administration of intravenous contrast. INDICATION: Abdominal pain. COMPARISON: 10/16/2008 FINDINGS: CT chest: Cardiomediastinal structures show normal heart size. There is no large pericardial effusion. No pathologically enlarged or morphologically abnormal adenopathy is seen within the mediastinum, milton, nor axilla. Lung wilkins show a 1.7 x 1.5 cm groundglass density within the lateral margins of the left upper lobe (image 16, series 2). Please note, there is moderate image degradation of the remainder of the lung secondary to motion artifact. There is, however a second area of groundglass density within the subpleural margins of the anterior right upper lobe (image 18, series 2). It measures approximately 1.2 x 1.2 cm. There is no large effusion or pneumothorax. Bony structures show no acute abnormalities. CT abdomen: There is advanced cirrhotic appearance to the liver. Indwelling intraparenchymal portosystemic shunt stent is noted. There is sequela of portal venous hypertension including multiple gastroesophageal varices and moderate splenomegaly. Splenorenal shunts are also noted. No focal hepatic or splenic lesions are identified on this exam. The kidneys, adrenal glands, and pancreas have a normal CT appearance. There is trace amount of free fluid scattered throughout the abdomen. There is no focal loculated air-fluid collection or free air. No abnormal mesenteric or retroperitoneal adenopathy is seen. There is mild scattered calcified aortic atherosclerosis. Small bowel loops are nondistended. Note is made of thickened appearance the wall of cecum, as it measures 1.6 cm. Normal appendix is identified. Bony structures show no acute abnormalities. CT pelvis: Urinary bladder is grossly unremarkable. There is no loculated fluid collection or free air within the pelvis. No abnormal lymph nodes are seen. There is small amount of free fluid. Bony structures show no acute abnormalities. IMPRESSION: 1. Nodular areas of groundglass density within the bilateral upper lobes. Findings could be on the basis of focal infiltrate, although bronchoalveolar carcinoma may also present in a similar manner. 3 month followup is recommended to ensure stability. 2. Advanced hepatic cirrhosis with sequela of portal venous hypertension as described above. 3. Indwelling TIPS stent. Patency of the shunt cannot be evaluated on this exam. If there is concern for patency of the shunt, ultrasound with Doppler evaluation is recommended. 4. Thickened appearance the wall of the cecum. Findings could be incidental or artifactual and related to incomplete distention. Colonic malignancy, portal colopathy, or changes of infectious or inflammatory colitis may also have similar appearance. Correlation with colonoscopy is recommended when clinically appropriate. 5. Trace ascites. Dictated by: Dictated on workstation # [id number]
[2018-07-21] MEDS ORDERED: NS W/KCL 20 MEQ/L 1,000 ML IV ONE (06:16)
--- NOTE | 2018-07-21 06:17 | Diagnostic Imaging Report ---
PROCEDURE: CT head and CT cervical spine without contrast. TECHNIQUE: Multiple contiguous axial images were obtained through the brain and cervical spine without the use of intravenous contrast. Sagittal and coronal reformations through the cervical spine were then performed. INDICATION: Fall. Possible trauma. COMPARISON: 08/17/2016 FINDINGS: CT head: Ventricles and cortical sulci are stable in size and contour. There are confluent areas of abnormal, low attenuation in the periventricular white matter. This is consistent with chronic small vessel ischemic changes. There is no midline shift or mass-effect. No acute intra-axial hemorrhage is seen. There are no abnormal areas of increased or decreased density to suggest acute hemorrhage or edema. No extra-axial masses or collections are present. The bony calvarium is intact. The visualized paranasal sinuses are unremarkable. The mastoid air cells are clear. CT cervical spine: Static alignment of the cervical spine is maintained. There is no significant anterolisthesis or retrolisthesis. There is no evidence of jumped facets. Vertebral body heights are maintained. There is no evidence of acute fracture. No bony fragments are seen within the spinal canal. There are multilevel degenerative changes consisting of intervertebral disc height loss with anterior and posterior disc osteophyte complex formations, as well as multilevel facet arthropathy. These changes appear greatest at the C6-C7 level. Pre-and paravertebral soft tissue structures are unremarkable. Included portions of lung apices are unremarkable. IMPRESSION: 1. No acute intracranial abnormality. No CT evidence of mass, acute infarct or intracranial hemorrhage. 2. Chronic small vessel ischemic changes in deep white matter. Please note, overall appearance is greater than expected given patient's age. Correlation with underlying risk factors is recommended. 3. No CT evidence of acute fracture or dislocation of cervical spine. 4. Multilevel degenerative changes cervical spine, greatest at C6-C7 level. Dictated by: Dictated on workstation # [id number]
[2018-07-21] MEDS ORDERED: ONDANSETRON 4 MG/2 ML (SDV) Z0FRAN IV PRN (06:45)
[2018-07-21] MEDS ORDERED: CATHETER FLUSH 10 ML SYR IV PRN (06:45)
[2018-07-21] MEDS: NS W/KCL 20 MEQ/L 1,000 ML IV SCH ×3 (06:57→20:56)
[2018-07-21] MEDS: fentaNYL INJECTION 100 MCG/2 ML AMP IV PRN ×4 (06:57→20:53)
[2018-07-21] MEDS ORDERED: FLU QUADRIvalent (5+ YOA) 2018-2019 (AFLURIA) 0.5 ML IM ONE (07:30)
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
[2018-07-21] MEDS: LACTULOSE SYRUP 10GM/15ML (ENULOSE) 30ML UDC PO SCH ×3 (09:37→21:01)
[2018-07-21 11:48] LABS: BASOPHILS % (AUTO) 1 % (0-10); EOSINOPHILS # (AUTO) 0.2 10^3/uL (0.0-0.3); EOSINOPHILS % (AUTO) 3 % (0-10); HEMATOCRIT 25 % (35-52); HEMOGLOBIN 8.7 G/DL (11.5-16.0); LYMPHOCYTES # (AUTO) 0.6 X 10^3 (1.0-4.0); LYMPHOCYTES % (AUTO) 13 % (12-44); MEAN CORPUSCULAR HEMOGLOBIN 32 PG (25-34); MEAN CORPUSCULAR HGB CONC 35 G/DL (32-36); MEAN CORPUSCULAR VOLUME 90 FL (80-99); MEAN PLATELET VOLUME 10.5 FL (7.4-10.4); MONOCYTES # (AUTO) 0.7 X 10^3 (0.0-1.0); MONOCYTES % (AUTO) 15 % (0-12); NEUTROPHILS # (AUTO) 3.2 X 10^3 (1.8-7.8); NEUTROPHILS % (AUTO) 68 % (42-75); PLATELET COUNT 44 10^3/uL (130-400); RED BLOOD COUNT 2.74 10^6/uL (4.35-5.85); RED CELL DISTRIBUTION WIDTH 13.5 % (10.0-14.5); WHITE BLOOD COUNT 4.7 10^3/uL (4.3-11.0)
[2018-07-21 11:58] LABS: ALBUMIN 2.6 GM/DL (3.2-4.5); BILIRUBIN,TOTAL 2.3 MG/DL (0.1-1.0); CREATININE SERUM 1.06 MG/DL (0.60-1.30); POTASSIUM 3.9 MMOL/L (3.6-5.0); TOTAL PROTEIN 5.7 GM/DL (6.4-8.2)
[2018-07-21] MEDS ORDERED: NS IV 1000 ML 1,000 ML IV SCH (12:45)
[2018-07-21] MEDS ORDERED: AZITHROMYCIN 250 MG TAB (ZITHROMAX) PO NR (12:45)
[2018-07-21] MEDS ORDERED: HALOPERIDOL 5 MG/ML (HALDOL) AMP IV PRN (12:45)
[2018-07-21] MEDS ORDERED: ENOXAPARIN 40 MG/0.4 ML (LOVENOX) SYR SQ SCH (13:00)
[2018-07-21 17:47] LABS: HEMOGLOBIN 8.7 G/DL (11.5-16.0); MEAN PLATELET VOLUME 9.4 FL (7.4-10.4); RED BLOOD COUNT 2.71 10^6/uL (4.35-5.85); RED CELL DISTRIBUTION WIDTH 13.7 % (10.0-14.5)
[2018-07-21 18:07] LABS: ALANINE AMINOTRANSFERASE 108 U/L (0-55); ALBUMIN 2.9 GM/DL (3.2-4.5); ALKALINE PHOSPHATASE 98 U/L (40-136); AMMONIA 37 UMOL/L (11-32); BILIRUBIN,TOTAL 2.4 MG/DL (0.1-1.0); BUN/CREATININE RATIO 22; CALCIUM 7.9 MG/DL (8.5-10.1); CARBON DIOXIDE 17 MMOL/L (21-32); CHLORIDE 111 MMOL/L (98-107); CREATININE SERUM 0.96 MG/DL (0.60-1.30); GFR ESTIMATED > 60; GLUCOSE 77 MG/DL (70-105); POTASSIUM 3.3 MMOL/L (3.6-5.0); SODIUM 138 MMOL/L (135-145); TOTAL PROTEIN 5.8 GM/DL (6.4-8.2)
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
[2018-07-21] MEDS ORDERED: LACT10SO PO (19:19)
[2018-07-21] MEDS ORDERED: NITR100C PO (19:19)
--- NOTE | 2018-07-21 19:23 | Discharge Instructions ---
Discharge Inst-[facility] Discharge Medications New, Converted or Re-Newed RX: Transmitted to Pharmacy New Medications: Lactulose (Lactulose) 10 Gm/15 Ml Solution 10 GM PO BID for 10 Days, #300 ML Nitrofurantoin Macrocrystal (Nitrofurantoin) 100 Mg Capsule 100 MG PO BID for 7 Days, #14 CAP 0 Refills Patient Instructions Patient Instructions -avoid alcohol, tobacco and drugs -take medications as prescribed -drink plenty of water -keep follow up appt with Dr. Whitten Goal/Follow Up Appt: Dr. Whitten, 10 am on 07/24/18 Return to The Hospital For: chest pain or pressure, shortness of breath, nausea or vomiting that lasts more than 24 hours and makes you unable to keep down ice chips or clear liquids, if directed by chief librarian circulation department provider or with any other emergent complaints or concerns Activity & Diet Discharge Diet: No Restrictions Activity as Tolerated: Yes Orders-Post D/C & Referrals -CT Chest in 3 months -- follow up to lung nodules in right and left upper lobes -colonoscopy to evaluate thickened cecum as outpatient Copy Copies To 1: IDRIS WHITTEN MD, MARGARET E DO Jul 21, 2018 19:17
[2018-07-21] MEDS: RIFAXIMIN 550 MG TABLET (XIFAXAN) PO SCH (21:01)
[2018-07-22] MEDS ORDERED: HALOPERIDOL 5 MG/ML (HALDOL) AMP IM PRN (01:15)
[2018-07-22] MEDS ORDERED: LORazepam INJ 2 MG/ML (ATIVAN) VIAL IM PRN (01:15)
[2018-07-22] MEDS ORDERED: diphenhydrAMINE 50 MG/ML INJ (BENADRYL) IM PRN (01:45)
[2018-07-22 04:13] LABS: BASOPHILS % (AUTO) 0 % (0-10); EOSINOPHILS # (AUTO) 0.1 10^3/uL (0.0-0.3); EOSINOPHILS % (AUTO) 2 % (0-10); HEMATOCRIT 24 % (35-52); HEMOGLOBIN 8.8 G/DL (11.5-16.0); LYMPHOCYTES # (AUTO) 0.8 X 10^3 (1.0-4.0); LYMPHOCYTES % (AUTO) 17 % (12-44); MEAN CORPUSCULAR HEMOGLOBIN 34 PG (25-34); MEAN CORPUSCULAR HGB CONC 36 G/DL (32-36); MEAN CORPUSCULAR VOLUME 93 FL (80-99); MEAN PLATELET VOLUME 10.3 FL (7.4-10.4); MONOCYTES # (AUTO) 0.7 X 10^3 (0.0-1.0); MONOCYTES % (AUTO) 15 % (0-12); NEUTROPHILS % (AUTO) 66 % (42-75); PLATELET COUNT 50 10^3/uL (130-400); RED BLOOD COUNT 2.63 10^6/uL (4.35-5.85); RED CELL DISTRIBUTION WIDTH 13.6 % (10.0-14.5); WHITE BLOOD COUNT 4.6 10^3/uL (4.3-11.0)
[2018-07-22 04:25] LABS: ALANINE AMINOTRANSFERASE 99 U/L (0-55); ALBUMIN 2.8 GM/DL (3.2-4.5); ALKALINE PHOSPHATASE 97 U/L (40-136); AMMONIA 41 UMOL/L (11-32); BILIRUBIN,TOTAL 2.2 MG/DL (0.1-1.0); BUN/CREATININE RATIO 20; CALCIUM 7.9 MG/DL (8.5-10.1); CARBON DIOXIDE 16 MMOL/L (21-32); CHLORIDE 111 MMOL/L (98-107); CREATINE KINASE 366 U/L (29-168); CREATININE SERUM 0.84 MG/DL (0.60-1.30); GFR ESTIMATED > 60; GLUCOSE 94 MG/DL (70-105); POTASSIUM 3.5 MMOL/L (3.6-5.0); SODIUM 137 MMOL/L (135-145); TOTAL PROTEIN 5.7 GM/DL (6.4-8.2)
[2018-07-22] MEDS: fentaNYL INJECTION 100 MCG/2 ML AMP IM PRN ×2 (06:55→11:14)
[2018-07-22] MEDS ORDERED: cefTRIAXone 1 GM/NS 50 ML IVPB IV SCH ×2 (09:00)
[2018-07-22] MEDS: LACTULOSE SYRUP 10GM/15ML (ENULOSE) 30ML UDC PO SCH ×2 (09:15→11:18)
[2018-07-22] MEDS: RIFAXIMIN 550 MG TABLET (XIFAXAN) PO SCH ×2 (09:15→11:18)
[2018-07-22 13:51] VITALS: BP 126/59
== END 2018-07-22 13:20 | disposition home or self-care (01) | DRG 442 ==
LOC: EDUNIT# 02:12 → ER 02:15 → 4TH 05:25
PROVIDERS: ADMIT Family Medicine; ATTEND Family Medicine
DX: K72.90 Hepatic failure, unspecified without coma (principal); N39.0 Urinary tract infection, site not specified; I85.00 Esophageal varices without bleeding; R18.8 Other ascites; K76.6 Portal hypertension; T76.91XA Unspecified adult maltreatment, suspected, initial encounter; T22.031A Burn of unspecified degree of right upper arm, initial encounter; T23.072A Burn of unspecified degree of left wrist, initial encounter; T79.6XXA Traumatic ischemia of muscle, initial encounter; S30.1XXA Contusion of abdominal wall, initial encounter; S80.11XA Contusion of right lower leg, initial encounter; S80.12XA Contusion of left lower leg, initial encounter; F17.210 Nicotine dependence, cigarettes, uncomplicated; K74.60 Unspecified cirrhosis of liver; R16.1 Splenomegaly, not elsewhere classified; M54.2 Cervicalgia; K44.9 Diaphragmatic hernia without obstruction or gangrene; R31.9 Hematuria, unspecified; R10.84 Generalized abdominal pain; F15.10 Other stimulant abuse, uncomplicated; F41.9 Anxiety disorder, unspecified; G43.909 Migraine, unspecified, not intractable, without status migrainosus; M19.91 Primary osteoarthritis, unspecified site; E03.9 Hypothyroidism, unspecified; D69.59 Other secondary thrombocytopenia; D64.9 Anemia, unspecified; R79.1 Abnormal coagulation profile; Z79.899 Other long term (current) drug therapy; Z86.711 Personal history of pulmonary embolism; Z23 Encounter for immunization
CPT/HCPCS: 36415; 70450; 71260; 72125; 74177; 80053; 80306; 80320; 81000; 82140; 82550; 82553; 83605; 83615; 83690; 84443; 85025; 85027; 85610; 85730; 87040; 87077; 87088; 87186; 90715